=== PATIENT | female | born 1995 | race Caucasian/White ===

== ENCOUNTER → 2022-05-07 | Outpatient (CLI) | payer OTHER, SELFPAY ==
[2022-05-11 20:03] LABS: HPV Reflexed? NOT INDICATED
== END | disposition home or self-care (01) ==
LOC: LABSPEC 05-08 07:00
PROVIDERS: Referring Provider Nurse Practitioner Women's Health; Visit Provider Nurse Practitioner Women's Health
DX: Z12.4 Encounter for screening for malignant neoplasm of cervix (principal)
CPT/HCPCS: 88175; G0145

== ENCOUNTER → 2022-07-06 | Outpatient (CLI) | payer OTHER, SELFPAY ==
[2022-07-06 15:14] LABS: Amphetamine Urine VISTA NEGATIVE (<1000 ng/mL); Barbiturate Urine VISTA NEGATIVE (< 200 ng/mL); Benzodiazepine Urine VISTA NEGATIVE (< 200 ng/mL); Cocaine Urine VISTA NEGATIVE (< 300 ng/mL); Ecstacy Urine VISTA NEGATIVE (< 500 ng/mL); Methadone Urine VISTA NEGATIVE (< 300 ng/mL); PCP Urine VISTA NEGATIVE (< 25 ng/mL); THC Urine VISTA NEGATIVE (< 50 ng/mL); Vista UDS pH Range 6
== END | disposition home or self-care (01) ==
LOC: LABSPEC 14:02
PROVIDERS: Visit Provider Obstetrics & Gynecology
DX: Z34.90 Encounter for supervision of normal pregnancy, unspecified, unspecified trimester (principal)
CPT/HCPCS: 80307; 87086

== ENCOUNTER → 2022-08-25 | Outpatient (CLI) | payer OTHER, SELFPAY ==
[2022-08-25] MEDS: 0.9% NaCl Peripheral Flush Adult/Peds IV (12:13)
[2022-08-25 12:14] VITALS: BP 118/72; PULSE 84; RESP 14; TEMP 36.2; O2SAT 100; BMI 19.4
[2022-08-25] MEDS: Ondansetron 4 MG/2 ML Vial IV (12:23)
[2022-08-25] MEDS: Dextrose 5%-Lactated Ringers 1,000 ML 999 ML IV (12:23)
[2022-08-25 13:53] VITALS: BP 103/59; PULSE 72
== END | disposition home or self-care (01) ==
LOC: MEDOUTP 11:49
PROVIDERS: PCP Internal Medicine; Referring Provider Obstetrics & Gynecology; Visit Provider Obstetrics & Gynecology
DX: E86.0 Dehydration (principal)
CPT/HCPCS: 96374; 96361; A4216; J2405

== ENCOUNTER → 2022-09-02 | Outpatient (CLI) | payer OTHER, SELFPAY ==
[2022-09-02 13:17] LABS: Absolute Lymphocyte Count 1.45 X10^3/uL (0.83-4.51); Basophil# 0.04 X10^3/uL; Basophil% 0.6 % (0-1); Eosinophil# 0.07 X10^3/uL; Hematocrit 41.2 % (37-47); Hemoglobin 13.8 g/dL (12.0-15.0); Lymphocyte # 1.45 X10^3/ul (0.83-4.51); Lymphocyte % 20.7 % (19-41); Mean Corp Hgb Conc 33.5 g/dL (32-36); Mean Corpuscular Hgb 29.9 pg (27.0-32.0); Mean Corpuscular Volume 89.2 fL (81-99); Mean Platelet Vol. 9.7 fl (6.2-12.0); Monocyte# 0.36 X10^3/uL; Monocyte% 5.2 % (0-10); NRBC Flagged by Analyzer 0 % (0-5); Neutrophil # 5.02 X10^3/uL (2.7-7.7); Neutrophil % 71.8 % (47-70); Platelet Count 273 K/mm3 (150-450); RBC Distribution Width CV 12.4 % (11.6-14.6); RBC Distribution Width SD 40.4 fl (35.1-43.9); Red Blood Count 4.62 M/mm3 (4.2-5.4)
[2022-09-02 14:04] LABS: ALB/GLOB Ratio 0.9 RATIO (0.9-2.4); AST(SGOT) 19 U/L (15-37); Alanine Aminotransfer ALT/SGPT 24 U/L (13-56); Albumin, Serum 3.4 g/dL (3.2-5.0); Alkaline Phosphatase 51 U/L (45-117); Anion Gap 7 (5-15); BUN 4 mg/dL (7-18); BUN/Creat Ratio 8.2 RATIO (10-20); Calcium,Total 9.3 mg/dL (8.5-10.1); Chloride 107 mmol/L (98-107); Creatinine, Serum 0.49 mg/dL (0.55-1.02); EST Glomerular Filtration Rate 161 mL/min (>60); Est Glom Filt Rate - Afr Amer 195 mL/min (>60); Globulin 3.9 g/dL (2.2-4.2); Glucose 96 mg/dL (74-106); Potassium 3.8 mmol/L (3.5-5.1); Protein, Total 7.3 g/dL (6.4-8.2); Sodium Level 138 mmol/L (136-145)
[2022-09-02 14:47] LABS: HIV - WCH Non-Reactive (Nonreactive); Hepatitis B Surface Antigen Non-Reactive (Nonreactive); Hepatitis C Antibody Non-Reactive (Nonreactive); Rubella IgG Reactive (Nonreactive); Syphilis Antibodies Non-reactive
== END | disposition home or self-care (01) ==
LOC: LAB 12:19
PROVIDERS: PCP Internal Medicine; Visit Provider Obstetrics & Gynecology
DX: Z34.90 Encounter for supervision of normal pregnancy, unspecified, unspecified trimester (principal)
CPT/HCPCS: 36415; 80053; 85025; 86703; 86762; 86780; 86803; 86850; 86900; 86901; 87340

== ENCOUNTER → 2022-09-17 | Outpatient (CLI) | payer OTHER, SELFPAY ==
[2022-09-17 14:01] VITALS: BP 107/53; PULSE 88; RESP 16; TEMP 36.8; O2SAT 100
[2022-09-17] MEDS: 0.9% NaCl Peripheral Flush Adult/Peds IV (14:05)
[2022-09-17] MEDS: Ondansetron 4 MG/2 ML Vial IV (14:11)
[2022-09-17] MEDS: Dextrose 5%-Lactated Ringers 1,000 ML 999 ML IV (14:12)
[2022-09-17 15:28] VITALS: BP 104/59; PULSE 69
== END | disposition home or self-care (01) ==
LOC: MEDOUTP 13:42
PROVIDERS: PCP Internal Medicine; Referring Provider Obstetrics & Gynecology; Visit Provider Obstetrics & Gynecology
DX: E86.0 Dehydration (principal)
CPT/HCPCS: 96374; 96361; A4216; J2405

== ENCOUNTER → 2022-10-28 | Outpatient (CLI) | payer OTHER, SELFPAY ==
[2022-10-30 21:07] LABS: Chlamydia By Nucleic Acid AMP Negative (Negative)
[2022-10-30 21:24] LABS: Gonococcus By Nucleic Acid AMP Negative (Negative)
== END | disposition home or self-care (01) ==
LOC: LABSPEC 16:58
PROVIDERS: PCP Internal Medicine; Visit Provider Obstetrics & Gynecology
DX: Z34.90 Encounter for supervision of normal pregnancy, unspecified, unspecified trimester (principal)
CPT/HCPCS: 87491; 87591

== ENCOUNTER 2022-11-21 11:06 | Emergency (ER) | payer OTHER, SELFPAY ==
[2022-11-21 11:10] VITALS: BP 139/84; PULSE 100; RESP 18; TEMP 36.6; O2SAT 99; BMI 21.5
--- NOTE | 2022-11-21 11:53 | EDS_ITS ---
HPI History of Present Illness Chief Complaint: Nausea/Vomiting Informant: patient and spouse/S.O. Narrative Narrative: G1, P0 at 27 weeks gestation and presents for nausea vomiting since 4 AM 2 episodes of diarrhea. No bloody emesis or stools. Diagnosed with hyperemesis at 4 weeks. She would go to OB infusion center with flareups that would improve with Zofran last time was 6 weeks ago. They are not open today with holidays. She called on-call OB was sent to ED for treatment. She is typically followed by [facility] Dr. Palomo. No urinary symptoms. Occasional cramping of abdomen. Denies vaginal bleeding. Prior similar symptoms: Yes PFSH PFSH Medical History Acute kidney injury Adverse reaction to COVID-19 vaccine Asthma History of facial fracture Hyperemesis gravidarum IUD contraception Migraines Nausea & vomiting Raynauds disease Raynauds phenomenon Rh negative status during Seasonal allergies Home Medications albuterol sulfate 90 mcg/actuation aerosol inhaler (ProAir HFA) 2 puff inhalation Q6H PRN shortness of breath 07/24/22 [History Last Taken Unknown] fluticasone propionate 50 mcg/actuation blister powder for inhalation (Flovent Diskus) 1 inh inhalation BID PRN Respiratory Distress 07/24/22 [History Last Taken Unknown] prenat.vits,bennie,fxt-kbnw-aajjp 1 tab PO DAILY 08/25/22 [History Last Taken Unknown] hydroxyzine pamoate 25 mg capsule (Vistaril) 25 mg PO QHS #30 caps 10/28/22 [Rx Last Taken Unknown] ondansetron HCl 4 mg tablet 4 mg PO Q8H #90 tabs 10/28/22 [Rx Last Taken Unknown] valacyclovir 500 mg tablet (Valtrex) 500 mg PO BID #14 tabs 11/14/22 [Rx Last Taken Unknown] cephalexin 500 mg capsule 500 mg PO Q12 #10 caps 11/21/22 [Rx Last Taken Unknown] Allergy/AdvReac Type Severity Reaction Status Date / Time Iodinated Contrast Media Allergy Severe Anaphylaxis Verified 11/21/22 11:09 shellfish derived Allergy Severe Anaphylaxis Verified 11/21/22 11:09 acetaminophen [From Percocet] AdvReac Intermediate Vomiting Verified 11/21/22 11:09 hydrocodone [From Vicodin] AdvReac Intermediate Vomiting Verified 11/21/22 11:09 oxycodone [From Percocet] AdvReac Intermediate Vomiting Verified 11/21/22 11:09 anesthesia AdvReac Mild Vomiting Uncoded 11/21/22 11:09 Family History Father Prostate CA Hypertension Osteoporosis Heart disease Myocardial infarction, Onset Age: 30 Cancer prostate Grandmother Diabetes Brother Depression Bipolar 1 disorder Schizophrenia Transgender Mother [place] Anderson syndrome (geniculate herpes zoster) Surgical History History of breast biopsy Hx of shoulder surgery Social History adopted: No household members: spouse housing: house current occupational status: employed current occupation: [employer] current occupational exposures/hazards: Yes (Burning houses) pets and animals: Yes pets and animals: dog(s) history of recent travel: Yes (, Cruise [place], [place], [place], [place]) out of state: Yes out of country: Yes sexually active: Yes Smoking Status: Never smoker alcohol intake: former details: social substance use type: does not use diet: lactose free well-balanced diet: daily or most days caffeine: No during the past year weight has: remained stable what type of physical activity do you participate in: walking frequency: 1-2 times per week carey/confucianist: None seatbelt use: always do you feel safe at home: Yes additional social history: - Johnathon ROS ROS ED Constitutional Constitutional ED: Denies chills, fever(s) or sweats Eyes Eyes: Denies change in vision ENT ENT ED: Denies dysphagia or sore throat Cardiovascular Cardiovascular: Denies chest pain, leg edema, palpitations or racing heartbeat Respiratory/Chest Respiratory/Chest: Denies cough, dyspnea or dyspnea on exertion Gastrointestinal Gastrointestinal: Reports nausea and vomiting; Denies abdominal pain or diarrhea Genitourinary Genitourinary ED: Denies dysuria, hematuria or urinary frequency Musculoskeletal Musculoskeletal: Denies back pain, extremity pain or neck pain Integumentary Denies rash or wounds Neurologic Neurologic: Denies headache(s), paresthesias or weakness EXAM Physical Exam Const Vital Signs: 11/21/22 11:10 Temperature 97.8 F Temperature Source Temporal Pulse Rate 100 Respiratory Rate 18 Blood Pressure 139/84 H Blood Pressure Mean 102 Pulse Ox 99 Oxygen Delivery Method Room Air Positive well nourished and well developed General Appearance ED: well developed and NAD HEENT Reports dry mucous membranes normocephalic and atraumatic Mouth ED: Yes dry mucous membranes Mouth: dry mucous membranes Eyes PERRL, EOMs intact bilaterally and conjunctivae normal General Eye ED: Yes normal appearance of both eyes Neck no lymphadenopathy and supple General: Negative for tenderness Chest Wall Chest: Negative for tenderness Resp normal respiratory effort and normal air movement Effort and Inspection: symmetric chest movement; Negative for respiratory distress Cardio regular rate, regular rhythm and no murmurs Peripheral Pulses: pulses 2+ throughout GI normal to inspection, nondistended, normoactive bowel sounds and non-tender GI Narrative: Gravid abdomen, nontender. Palpation: Negative for guarding or rebound tenderness present Back/Spine no CVA tenderness and no thoracic nor lumbar tenderness Extremity normal to inspection General Extremety ED: Negative for edema or tenderness General Extremity: Negative for edema Neuro oriented x3 and no sensory deficits noted Sensorium / Orientation: awake and alert Skin no rashes or lesions noted and no wounds MDM MDM MDM Narrative Medical decision making narrative: Patient dry mucosal membranes. 2 L fluid ordered IV Zofran. Urine negative for ketones slight leukocytes and WBCs and bacteria urine culture sent. Electrolytes are normal. Reevaluate improved she is tolerated oral intake. Tylenol added for back discomfort with improvement. She is started on Keflex due to her with UTI findings. Culture pending. She will follow-up with her doctors as an outpatient with return precautions. Initial heart tones 170 rechecked after fluids was 158. Lab Data Attestation: I reviewed the patient's lab results. Labs: Laboratory Results - last 24 hr 11/21/22 11/21/22 12:05 12:17 Sodium 136 Potassium 3.6 Chloride 106 Carbon Dioxide 23.0 Anion Gap 7 BUN 5 L Creatinine 0.48 L Estim Creat Clear Calc 139.24 Est GFR (MDRD) Af Amer 200 Est GFR (MDRD) Non-Af 165 BUN/Creatinine Ratio 10.5 Glucose 81 Calcium 8.4 L Urine Color Yellow Urine Clarity Clear Urine pH 8.0 Ur Specific [place] 1.010 Urine Protein 15 H Urine Glucose (UA) Normal Urine Ketones Negative Urine Occult Blood Negative Urine Nitrite Negative Urine Bilirubin Negative Urine Urobilinogen Normal Ur Leukocyte Esterase 25 H Urine RBC 0 SEEN Urine WBC 5-10 SEEN Ur Squamous Epith Cells 0-5 SEEN Urine Bacteria 2+ Urine Mucus 0 SEEN Discharge Plan Triage Chief Complaint: Nausea/Vomiting ED Provider: Michael Mireles Dx/Rx/DC Orders Clinical Impression: Hyperemesis gravidarum, Third trimester , UTI in Instructions: Urinary Tract Infections in Women, 3rd Trimester Changes, ED Hyperemesis Gravidarum Prescriptions: New cephalexin [cephalexin] 500 mg capsule 500 mg PO Q12 Qty: 10 0RF No Action Flovent Diskus 50 mcg/actuation blister with device 1 inh inhalation BID PRN (Reason: Respiratory Distress) albuterol sulfate [ProAir HFA] 90 mcg/actuation HFA aerosol inhaler 2 puff inhalation Q6H PRN (Reason: shortness of breath) hydroxyzine pamoate [Vistaril] 25 mg capsule 25 mg PO QHS Qty: 30 5RF ondansetron HCl 4 mg tablet 4 mg PO Q8H Qty: 90 2RF Vitamin Tablet 1 tab PO DAILY valacyclovir [Valtrex] 500 mg tablet 500 mg PO BID Qty: 14 0RF Primary Care Provider: Cristi Fontaine Referrals: Cristi Fontaine MD [Primary Care Provider] - Amelia Méndez DO [Med Staff - Active Staff] - 1 Week Disposition Disposition: Home, Self Care
[2022-11-21 12:09] LABS: Mucous, Urine 0 SEEN /hpf (<or=2+); Red Blood Cells-Urine 0 SEEN /hpf (0-5)
[2022-11-21 12:15] LABS: Color, Urine Yellow (Yellow); Glucose, Dipstick Normal (Normal); Ketone-Dipstick Negative (Negative); Leukocyte Esterase-Dipstick 25 /ul (Negative); Nitrite-Dipstick Negative (Negative); Occult Blood-Urine Negative /ul (Negative); Protein-Dipstick 15 mg/dl (Negative); Urine Bilirubin Dipstick Negative (Negative); Urine Clarity Clear (Clear); Urine Urobilinogen Normal (Normal)
[2022-11-21] MEDS: Ondansetron 4 MG/2 ML Vial IV (12:16)
[2022-11-21] MEDS: 0.9% Normal Saline 1,000 ML 1000 ML IV (12:16)
[2022-11-21 12:33] LABS: Anion Gap 7 (5-15); BUN 5 mg/dL (7-18); BUN/Creat Ratio 10.5 RATIO (10-20); Calcium,Total 8.4 mg/dL (8.5-10.1); Chloride 106 mmol/L (98-107); Creatinine, Serum 0.48 mg/dL (0.55-1.02); EST Glomerular Filtration Rate 165 mL/min (>60); Est Glom Filt Rate - Afr Amer 200 mL/min (>60); Estimated Creatinine Clearance 139.24 ml/min; Glucose 81 mg/dL (74-106); Potassium 3.6 mmol/L (3.5-5.1); Sodium Level 136 mmol/L (136-145)
[2022-11-21 12:35] LABS: Bacteria 2+ /hpf (None Seen); Squamous Epithelial Cells - UA 0-5 SEEN /hpf (5-10); White Blood Cells 5-10 SEEN /hpf (0-5)
[2022-11-21] MEDS: Acetaminophen 500 MG Tablet 1000 MG PO (14:28)
[2022-11-21] MEDS: Cephalexin 250 MG Capsule 500 MG PO (15:49)
[2022-11-21 15:50] VITALS: PULSE 87; RESP 18; O2SAT 100
== END 2022-11-21 15:57 | disposition home or self-care (01) ==
PROVIDERS: Emergency Provider Emergency Medicine; PCP Internal Medicine; Visit Provider Emergency Medicine
DX: O21.0 Mild hyperemesis gravidarum (principal); Z3A.27 27 weeks gestation of pregnancy; O23.43 Unspecified infection of urinary tract in pregnancy, third trimester; R19.7 Diarrhea, unspecified; O99.891 Other specified diseases and conditions complicating pregnancy
CPT/HCPCS: 80048; 81001; 87086; 96361; 96374; 99284; J7030; A4216; J2405

== ENCOUNTER → 2022-12-02 | Outpatient (CLI) | payer OTHER, SELFPAY ==
[2022-12-02 12:22] LABS: Absolute Lymphocyte Count 1.84 X10^3/uL (0.83-4.51); Absolute Neutrophil Count 6.4 X10^3/uL (2.0-7.7); Basophil# 0.05 X10^3/uL; Basophil% 0.6 % (0-1); Eosinophil# 0.15 X10^3/uL; Eosinophils% 1.7 % (0-5); Hematocrit 36.5 % (37-47); Hemoglobin 11.8 g/dL (12.0-15.0); Lymphocyte # 1.84 X10^3/ul (0.83-4.51); Lymphocyte % 20.3 % (19-41); Mean Corp Hgb Conc 32.3 g/dL (32-36); Mean Corpuscular Volume 89.7 fL (81-99); Mean Platelet Vol. 9.3 fl (6.2-12.0); Monocyte# 0.52 X10^3/uL; Monocyte% 5.7 % (0-10); NRBC Flagged by Analyzer 0.2 % (0-5); Neutrophil # 6.39 X10^3/uL (2.7-7.7); Neutrophil % 70.5 % (47-70); Platelet Count 381 K/mm3 (150-450); RBC Distribution Width CV 12.4 % (11.6-14.6); RBC Distribution Width SD 40.4 fl (35.1-43.9); Red Blood Count 4.07 M/mm3 (4.2-5.4); White Blood Count 9.1 K/mm3 (4.4-11.0)
[2022-12-02 12:32] LABS: Glucose Challenge Gest 1H 50g 147 mg/dL (70-140)
[2022-12-02 13:06] LABS: HIV - WCH Non-Reactive (Nonreactive); Syphilis Antibodies Non-reactive
== END | disposition home or self-care (01) ==
LOC: LAB 11:17
PROVIDERS: PCP Internal Medicine; Visit Provider Obstetrics & Gynecology
DX: Z34.90 Encounter for supervision of normal pregnancy, unspecified, unspecified trimester (principal); Z13.1 Encounter for screening for diabetes mellitus
CPT/HCPCS: 36415; 82950; 85025; 86703; 86780

== ENCOUNTER → 2022-12-22 | Outpatient (CLI) | payer OTHER, SELFPAY | END | disposition home or self-care (01) | PROVIDERS: PCP Internal Medicine; Referring Provider Obstetrics & Gynecology; Visit Provider Obstetrics & Gynecology | DX: O26.899 Other specified pregnancy related conditions, unspecified trimester (principal); Z67.91 Unspecified blood type, Rh negative | CPT/HCPCS: 36415; 86900; 86901 ==

== ENCOUNTER → 2023-01-04 | Outpatient (CLI) | payer OTHER, SELFPAY ==
--- NOTE | 2023-01-04 15:09 | US_ITS ---
STUDY: SECOND AND THIRD TRIMESTER OBSTETRICAL ULTRASOUND - LIMITED REASON FOR EXAM: Female, 27 years old growth -- 32 weeks LMP: 05/23/2022. PRIOR ULTRASOUND: None. TECHNIQUE: Transabdominal and Transvaginal TECHNICAL QUALITY: Adequate. FINDINGS: There is a single intrauterine fetus. The fetus is in a cephalic presentation. There is demonstrated cardiac activity with a heart rate of 135 bpm. There is a normal amniotic fluid volume. The largest amniotic fluid pocket measures 4.6 cm. The amniotic fluid index (REGLA) is 13.7 cm. The placenta is posterior in location and is not low lying. There are Grade 0 placental changes. The cervix measures 2.3 cm in length. BIOMETRY: BPD: 8.5 cm: 34 weeks, 2 days HC: 31 cm: 34 weeks, 4 days AC: 28.28 cm: 32 weeks, 2 days FL: 6.23 cm: 32 weeks, 2 days Age by LMP: 32 weeks, 2 days. SAMSON by LMP: 02/27/2023. age by current US: 33 weeks, 1 days. SAMSON by current US: 02/21/2023. Estimated weight: 2032 grams, +/- 305 grams, 53 percentile. US/OB Limited With Biometrics IMPRESSION: Single live uterine gestation with a mean gestational age of 33 weeks and 1 day. Electronically Signed: Casey Chacon MD at 15:23 EST ,
== END | disposition home or self-care (01) ==
LOC: US 15:08
PROVIDERS: PCP Internal Medicine; Visit Provider Obstetrics & Gynecology
DX: O98.512 Other viral diseases complicating pregnancy, second trimester (principal); U07.1 COVID-19
CPT/HCPCS: 76816

== ENCOUNTER → 2023-02-01 | Outpatient (CLI) | payer OTHER, SELFPAY ==
--- NOTE | 2023-02-01 14:44 | US_ITS ---
STUDY: SECOND AND THIRD TRIMESTER OBSTETRICAL ULTRASOUND - LIMITED REASON FOR EXAM: Female, 27 years old growth -- 36 weeks LMP: May 23, 2022. PRIOR ULTRASOUND: Comparison is made with prior study of January 04, 2023. TECHNIQUE: Transabdominal TECHNICAL QUALITY: Adequate. FINDINGS: There is a single intrauterine fetus. The fetus is in a cephalic presentation. There is demonstrated cardiac activity with a heart rate of 140 bpm. There is a normal amniotic fluid volume. The largest amniotic fluid pocket measures 5.4 cm. The amniotic fluid index (REGLA) is 11.6 cm. The placenta is posterior in location and is not low lying. There are Grade 2 placental changes. The cervical length was unable to be measured due to head position. BIOMETRY: BPD: 9.2 cm: 37 weeks, 1 days HC: 32.8 cm: 37 weeks, 2 days AC: 31 cm: 35 weeks, 0 days FL: 7.1 cm: 36 weeks, 2 days Age by LMP: 36 weeks, 2 days. SAMSON by LMP: February 27, 2023. age by prior US: 37 weeks, 0 days. SAMSON by prior US: February 21, 2023. age by current US: 36 weeks, 3 days. SAMSON by current US: February 26, 2023. Estimated weight: 2780 grams, +/- 417 grams, 40 percentile. US/OB Limited With Biometrics IMPRESSION: Single live intrauterine gestation with a mean gestational age of 37 weeks. The measurements obtained today following within the normal expected range. Electronically Signed: Casey Chacon MD at 12:25 EST ,
== END | disposition home or self-care (01) ==
LOC: US 14:42
PROVIDERS: PCP Internal Medicine; Visit Provider Nurse Practitioner Women's Health
DX: O98.512 Other viral diseases complicating pregnancy, second trimester (principal); U07.1 COVID-19
CPT/HCPCS: 76816

== ENCOUNTER → 2023-02-03 | Outpatient (CLI) | payer OTHER, SELFPAY | END | disposition home or self-care (01) | LOC: LABSPEC 15:46 | PROVIDERS: PCP Internal Medicine; Referring Provider Obstetrics & Gynecology; Visit Provider Obstetrics & Gynecology | DX: Z34.90 Encounter for supervision of normal pregnancy, unspecified, unspecified trimester (principal) | CPT/HCPCS: 87081 ==

== ENCOUNTER 2023-02-18 07:50 | Inpatient (IN) | payer OTHER, SELFPAY ==
[2023-02-18] VITALS (48 sets, daily range): BP systolic 106–149; BP diastolic 51–100; PULSE 68–115; RESP 16; TEMP 36.1–37.1; O2SAT 90–100; BMI 24.0
[2023-02-18 02:43] LABS: ROM Internal Control Test YES-OK TO RESULT pt. (Internal QC); ROM Patient Test Negative (Negative)
--- NOTE | 2023-02-18 08:12 | HP.PCM.OB_ITS ---
HPI - General General Date of Admission: 02/18/23 HPI Narrative SULMA HILL, is a 27 y/o @ 38 weeks 5 days who presents to L&D with contractions that started at 1 am. By 4 am the contractions slowed some. However BP is now 140's/80's-90's. At 7 am cx changed to 3/90/0 and the decision was made to admit for augmentation and run PIH labs. Maternal Data Information SAMSON Calculator Estimated Delivery Date Method Current WG Current Estimate 02/27/23 LMP (Certain) 38w 5d PFSH [facility] Medical History (Updated 02/18/23 @ 04:30 by Cecile Daly) Acute kidney injury Adverse reaction to COVID-19 vaccine Asthma Genital herpes affecting History of facial fracture Hyperemesis gravidarum IUD contraception Migraines Nausea & vomiting Raynauds disease Raynauds phenomenon Rh negative status during Seasonal allergies Home Medications albuterol sulfate 90 mcg/actuation aerosol inhaler (ProAir HFA) 2 puff inhalation Q6H PRN shortness of breath 07/24/22 [History Last Taken Unknown] fluticasone propionate 50 mcg/actuation blister powder for inhalation (Flovent Diskus) 1 inh inhalation BID PRN Respiratory Distress 07/24/22 [History Last Taken Unknown] blood sugar diagnostic (Accu-Chek Guide test strips) #100 ea 12/02/22 [Rx Last Taken Unknown] blood-glucose meter #1 ea 12/02/22 [Rx Last Taken Unknown] lancets #100 ea 12/02/22 [Rx Last Taken Unknown] omeprazole 20 mg capsule,delayed release 20 mg PO DAILY 30 days #30 caps 11/29 07/21 [Rx Last Taken Unknown] famotidine 20 mg tablet (Pepcid) 20 mg PO DAILY heartburn 02/18/23 [History Last Taken 02/17/23] hydroxyzine pamoate 25 mg capsule (Vistaril) 25 mg PO QHS sleep 02/18/23 [ History Last Taken 02/17/23] omeprazole 20 mg-sodium bicarbonate 1.1 gram capsule (Zegerid OTC) 1 cap PO DAILY acid reflux 02/18/23 [History Last Taken 02/17/23] ondansetron HCl 4 mg tablet 4 mg PO Q8H PRN Nausea And Vomiting 02/18/23 [History Last Taken Unknown] Allergy/AdvReac Type Severity Reaction Status Date / Time Iodinated Contrast Media Allergy Severe Anaphylaxis Verified 02/17/23 14:36 shellfish derived Allergy Severe Anaphylaxis Verified 02/17/23 14:36 hydrocodone [From Vicodin] AdvReac Intermediate Vomiting Verified 02/17/23 14:36 oxycodone [From Percocet] AdvReac Intermediate Vomiting Verified 02/17/23 14:36 anesthesia AdvReac Mild Vomiting Uncoded 02/11/23 09:19 Family History Father Prostate CA Hypertension Osteoporosis Heart disease Myocardial infarction, Onset Age: 30 Cancer prostate Grandmother Diabetes Brother Depression Bipolar 1 disorder Schizophrenia Transgender Mother Kayce Anderson syndrome (geniculate herpes zoster) Surgical History (Updated 02/18/23 @ 04:30 by Cecile Daly) History of breast biopsy History of surgery Hx of shoulder surgery Social History adopted: No household members: spouse housing: house current occupational status: employed current occupation: [employer] current occupational exposures/hazards: Yes (Burning houses) pets and animals: Yes pets and animals: dog(s) history of recent travel: Yes (, [facility] [place], [place], [place], [place]) out of state: Yes out of country: Yes sexually active: Yes Smoking Status: Never smoker alcohol intake: former details: social substance use type: does not use diet: lactose free well-balanced diet: daily or most days caffeine: No during the past year weight has: remained stable what type of physical activity do you participate in: walking frequency: 1-2 times per week carey/sabianist: None seatbelt use: always do you feel safe at home: Yes additional social history: - Johnathon History 1 Elective abortions Hx Para 0 Spontaneous abortions Hx # Term Pregnancies Ectopic pregnancies Hx # Pregnancies Multiple births # of living children 0 Visit Details Expected Delivery Route/Plan Labor Preferences- CB/BF classes: [] labor support person: [] labor intervention preferences: [] pain management options preferred: [] cut cord/dad catch: [] : [] PP control planned: [] discussed possible routes of delivery and associated risks: [] special requests: [] Plans Covid status: vaccinated x1(had a reaction) Flu vaccine: declines Tdap vaccine: [] Rhogam: [] LARC form signed: [] Problem list reviewed and updated with the most current plan of care details and appropriate orders placed. Relevant counseling for the gestational age provided. Continue routine care and follow up unless otherwise noted in visit notes/problem list details OB Flowsheet Initial Weight: Not Recorded Date -?-?-?-?-?-?-?-?-?-?-?-?- EGA Weight BP Urine Prot -?-?-?-?-?-?-?-?-?-?-?-?- Glucose FHR FuHt Pres Dilation -?-?-?-?-?-?-?-?-?-?-?-?- Effaced St Visit Note 07/06/22 -?-?-?-?-?-?-?-?-?-?-?-?- 6w 2d 102 lb 8 oz 110/60 -?-?-?-?-?-?-?-?-?-?-?-?- 120 -?-?-?-?-?-?-?-?-?-?-?-?- SM- CRL cons wit h LMP SM- CRL 6mm cons with LMP 08/05/22 -?-?-?-?-?-?-?-?-?-?-?-?- 10w 4d 105 lb 4 oz 134/83 Nega tive -?-?-?-?-?-?-?-?-?-?-?-?- Negative 185 -?-?-?-?-?-?-?-?-?-?-?-?- JV- pt s till vo miting. wants refill in zofran. discussed zofran pump but declines. wants NIPT done 09/02/22 -?-?-?-?-?-?-?-?-?-?-?-?- 14w 4d 106 lb 2 oz 119/79 Nega tive -?-?-?-?-?-?-?-?-?-?-?-?- Negative 140 -?-?-?-?-?-?-?-?-?-?-?-?- LC-continues wit h n/v LC-continues with n/v. [facility] nausea management. currently taking zofran tid. pump is too costly at this time. to obtain NOB labs today 09/28/22 -?-?-?-?-?-?-?-?-?-?-?-?- 18w 2d 110 lb 6 oz 112/68 Nega tive -?-?-?-?-?-?-?-?-?-?-?-?- Negative 157 -?-?-?-?-?-?-?-?-?-?-?-?- MH-No VB. Ross Muro M. Nausea persists but improving. Declines pump/med change as insurance will not cover. Zofran helping more. Denies other concerns. 10/28/22 -?-?-?-?-?-?-?-?-?-?-?-?- 22w 4d 116 lb 4 oz 118/76 Nega tive -?-?-?-?-?-?-?-?-?-?-?-?- Negative 159 -?-?-?-?-?-?-?-?-?-?-?-?- JV- no lof, vagi nal bleeding, or dec fm. vistaril for sleep. fob is willing to get blood tested to avoid rhogam. 12/02/22 -?-?-?-?-?-?-?-?--?-?-?-?- 27w 4d 119 lb 119/79 Negative -?-?-?-?-?-?-?-?-?-?-?-?- Negative 155 -?-?-?-?-?-?-?-?-?-?-?-?- JV- no lof, vagi nal bleeding, or dec fm. She was in ER on [address] for HG. will try reglan and pepcid. failed 1 hr but can not do 3 hr. will start monitoring glucose levels at home and report data. 12/16/22 -?-?-?-?-?-?-?-?-?-?-?-?- 29w 4d 120 lb 8 oz 118/81 Nega tive -?-?-?-?-?-?-?-?-?-?-?-?- Negative 130 28 -?-?-?-?-?-?-?-?-?-?-?-?- JV- glucose log looks normal. all levels are within normal limits. ok to discontinue now and restart fasting levels at 36 weeks. return tomorrow for a type and screen and rhogam. 12/30/22 -?-?-?-?-?-?-?--?-?-?-?-?- 31w 4d 120 lb 8 oz 121/86 Nega tive -?-?-?-?-?-?-?-?-?-?-?-?- Negative 145 28 -?-?-?-?-?-?-?-?-?-?-?-?- JV- measuring sl ightly small but has growth scan scheduled. no complaints today. She was unable to get in to see Dr. Perez but plans to try other places for pelvic pain. 01/13/23 -?-?-?-?-?-?-?-?-?-?-?-?- 33w 4d 123 lb 3 oz 126/78 Nega tive -?-?-?-?-?-?-?-?-?-?-?-?- Negative 147 32 -?-?-?-?-?-?-?-?-?-?-?-?- JV- no lof, vagi nal bleeding, or dec fm. growth is 52% (4.47lbs) seeing Dr. Perez now. start glucose testing again at 36 weeks 01/27/23 -?-?-?-?-?-?-?-?-?-?-?-?- 35w 4d 127 lb 6 oz 122/80 Nega tive -?-?-?-?-?-?-?-?-?-?-?-?- Negative 140 34 Cephalic 0 .5 -?-?-?-?-?-?-?-?-?-?-?-?- -2 JV- vinicius ent complains of pelvic pressure. ptl precautions discussed. wants tdap. fmla paperwork to be filled out. JV- patient complains of vom iting in the middle of the night due to reflux. recommend zegrid + pepcid. if no improvement will consult Dr. Lerma. pelvic pressure. ptl precautions discussed. wants tdap. fmla paperwork to be filled out. 02/03/23 -?-?-?-?-?-?-?-?-?-?-?-?- 36w 4d 129 lb 4 oz 119/80 Nega tive -?-?-?-?-?-?-?-?-?-?-?-?- Negative 154 35 Cephalic 1 -?-?-?-?-?-?-?-?-?-?-?-?- 70 0 JV- station very low today an cx is behind the head. gbs collected. reflux improved. normal growth scan 6 lbs 1 oz sunshine 11 02/10/23 -?-?-?-?-?-?-?-?-?-?-?-?- 37w 4d 128 lb 4 oz 119/76 Nega tive -?-?-?-?-?-?-?-?-?-?-?-?- Negative 147 35 Cephalic 2 -?-?-?-?-?-?-?-?-?-?-?-?- 85 0 JV- pt is vomiting still in her sleep and now has a slight tickle in her throat and a cough. lungs are clear. recommend bicitra at night and IOL at 39 weeks to avoid aspiration. IOL set up for February 23 at 7am. 02/17/23 -?-?-?-?-?-?-?-?-?-?-?-?- 38w 4d 130 lb 4 oz 136/84 Nega tive -?-?-?-?-?-?-?-?-?-?-?-?- Negative 150 35 Cephalic 2 -?-?-?-?-?-?-?-?-?-?-?-?- 90 0 JV- no lof , vaginal bleeding, or dec fm. ROS Constitutional Constitutional: Denies change in weight, fatigue, fever(s), headache(s), poor appetite or weakness Eyes Eyes: Denies blurry vision, change in vision, seeing flashes or spots in vision ENT HEENT: Denies dizziness, headache(s), loss taste/smell or sore throat Cardiovascular Cardiovascular: Denies chest pain, dizziness, dyspnea, irregular heart rhythm, leg edema, palpitations, rapid heart rate or vomiting Respiratory/Chest Respiratory/Chest: Denies chest tightness, cough, dyspnea or breast pain Gastrointestinal Gastrointestinal: Denies abdominal pain, anorexia, constipation, cramping, diarrhea, hemorrhoids, vomiting or weight changes Genitourinary Genitourinary: Denies dysuria, flank pain, genital lesions, genital pain, urinary frequency or urinary urgency Musculoskeletal Musculoskeletal: Denies back pain, difficulty walking, joint pain, limited range of motion, muscle cramps or numbness Integumentary Integumentary: Denies lesions or unusual bruising Neurologic Neurologic: Denies abnormal movements, abnormal speech, dizziness, numbness, seizure-like activity or syncope Psychiatric Psychiatric: Denies anxiety, behavioral changes, change in appetite, change in libido, cognitive impairment, confusion, depression, difficulty concentrating, hallucinations or suicidal thoughts Endocrine Endocrinology: Denies excessive sweating, polydipsia or polyuria Hematologic/Lymphatic Hematologic/Lymphatic: Denies easy bleeding, easy bruising or lymphadenopathy Allergic/Immunologic Allergic/Immunologic: Denies itchy eyes, lip swelling, seasonal rhinorrhea, rhinitis, throat swelling, tongue swelling, eczemia, wheezing or asthma Vital Signs Vital Signs Vital Signs: 02/18/23 02:01 02/18/23 02:01 02/18/23 02:00 Temperature Temperature Source Pulse Rate 78 Blood Pressure 121/82 H BP Systolic 121 BP Diastolic 82 Pulse Ox 98 02/18/23 02:02 02/18/23 02:02 02/18/23 02:02 Temperature 98.6 F Temperature Source Temporal Pulse Rate Blood Pressure BP Systolic BP Diastolic Pulse Ox 98 02/18/23 07:18 02/18/23 07:18 02/18/23 07:20 Temperature Temperature Source Temporal Pulse Rate 74 Blood Pressure 143/82 H BP Systolic 143 BP Diastolic 82 Pulse Ox 02/18/23 07:20 Temperature 98.7 F Temperature Source Pulse Rate Blood Pressure BP Systolic BP Diastolic Pulse Ox Weight Weight: 131 lb 2.801 oz Body Mass Index (BMI) 24.0 Physical Exam Const alert, oriented x3, no apparent distress and healthy appearing General Appearance: cooperative; Negative for anxious HEENT normocephalic Face and Sinus: normal facial exam Eyes EOMs intact bilaterally and no scleral icterus General Eye: normal appearance of both eyes Neck full ROM and supple Lymph Lymphatic: no lymphadenopathy noted Chest Chest: abnormal inspection of the chest Resp normal respiratory effort Effort and Inspection: able to speak in complete sentences Cardio regular rate GI soft to palpation and non-tender Inspection: gravid Palpation: soft; Negative for tender external exam normal Amniotic Fluid: ROM+plus negative - Back/Spine no CVA tenderness Extremity normal to inspection, full ROM and no clubbing, cyanosis or edema General Extremity: Negative for calf tenderness or edema Skin Lesions: no lesions Rashes: no rashes Psych mental status grossly normal Labs Labs Labs: Blood Type A NEGATIVE Antibody Screen NEGATIVE Hct 36.5 % (37-47) L Hgb 11.8 g/dL (12.0-15.0) L Pap Smear Negative Obstetrics US Syphilis Total Ab Non-reactive Rubella IgG Antibody Reactive (Nonreactive) Hep Bs Antigen Non-Reactive (Nonreactive) Chlamydia DNA (LEILANI) Negative (Negative) Neisseria gonorrhoeae DNA (LEILANI) Negative (Negative) HIV 1&2 Antibody Non-Reactive (Nonreactive) Glucose 1 Hr 50 gm 147 mg/dL (70-140) H Assessment & Plan (1) History of recurrent UTI (urinary tract infection): COMMENT: 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 Hx benign bx. Records request and then de cide imaging. (3) : QUALIFIERS: Weeks of gestation: 38 weeks Qualified Code(s): Z3A.38 - 38 weeks gestation of COMMENT: GBS negative, anatomy nl, discussed NIPT & Carrier testing, failed 1 HR GCT, (4) Supervision of normal : COMMENT: PRR , surprise,SAMSON 02/27/23, Spouse Johnathon (5) COVID-19 affecting in first trimester: COMMENT: asa 81 mg daily, Growth US @ 32 & 36 weeks gestation, Pt took antiviral medication 06/08- (6) Exercise-induced asthma: (7) COVID-19 affecting in second trimester: COMMENT: asa 81 mg daily, Growth US at 32 & 36wks (8) Abnormal glucose affecting : COMMENT: pt can not do 3 hr gtt due to HG. wants to record glucose levels and report after 1-2 weeks. - normal levels x 2 weeks. will start checking fasting levels at 36 weeks (9) Segmental and somatic dysfunction of sacral region: (10) Back pain: QUALIFIERS: Back pain location: low back pain Chronicity: acute Back pain laterality: bilateral Sciatica presence: without sciatica Qualified Code(s): M54.50 - Low back pain, unspecified (11) Segmental and somatic dysfunction of thoracic region: (12) Rh negative status during : COMMENT: rhogam if a VB and at 28 wk (13) Hyperemesis gravidarum: COMMENT: unable to tolerate 3 hr gtt. (14) Raynauds phenomenon: (15) History of facial fracture: (16) Migraines: (17) Asthma: PLAN: Plan plan for augmentation of labor and pih labs
[2023-02-18] MEDS: LACTATED RINGERS 500 ML 999 ML IV (08:15)
[2023-02-18 08:28] LABS: Absolute Lymphocyte Count 2.91 X10^3/uL (0.83-4.51); Absolute Neutrophil Count 7.8 X10^3/uL (2.0-7.7); Basophil# 0.07 X10^3/uL; Basophil% 0.6 % (0-1); Eosinophil# 0.08 X10^3/uL; Eosinophils% 0.7 % (0-5); Hematocrit 38.8 % (37-47); Hemoglobin 12.8 g/dL (12.0-15.0); Lymphocyte # 2.91 X10^3/ul (0.83-4.51); Lymphocyte % 24.8 % (19-41); Mean Corpuscular Hgb 27.1 pg (27.0-32.0); Mean Corpuscular Volume 82.2 fL (81-99); Mean Platelet Vol. 9.8 fl (6.2-12.0); Monocyte# 0.72 X10^3/uL; Monocyte% 6.1 % (0-10); NRBC Flagged by Analyzer 0 % (0-5); Neutrophil # 7.83 X10^3/uL (2.7-7.7); Neutrophil % 66.6 % (47-70); Platelet Count 362 K/mm3 (150-450); RBC Distribution Width CV 13.1 % (11.6-14.6); RBC Distribution Width SD 38.5 fl (35.1-43.9); Red Blood Count 4.72 M/mm3 (4.2-5.4); White Blood Count 11.8 K/mm3 (4.4-11.0)
[2023-02-18] MEDS: Lactated Ringers 1,000 ML 50 ML IV (08:45)
[2023-02-18 08:54] LABS: AST(SGOT) 19 U/L (15-37); Alanine Aminotransfer ALT/SGPT 14 U/L (13-56); Creatinine, Serum 0.48 mg/dL (0.55-1.02); EST Glomerular Filtration Rate 162 mL/min (>60); Est Glom Filt Rate - Afr Amer 196 mL/min (>60); Estimated Creatinine Clearance 139.24 ml/min; Uric Acid 4.1 mg/dL (2.6-6.0)
[2023-02-18 09:09] LABS: Syphilis Antibodies Non-reactive
[2023-02-18 09:37] LABS: Protein, Urine (Random) 31.2 mg/dL (<11.9); Protein:Creat Ratio 276 mg/g CRE (0-200)
[2023-02-18] MEDS: fentaNYL-bupivacaine (epidural) 100 ML BAG EPIDURAL ×2 (09:51→14:23)
[2023-02-18] MEDS: Famotidine 20 MG Tablet 40 MG PO (10:39)
[2023-02-18] MEDS: Oxytocin 15 Units/NS 250ml 15 UNITS/250 ML IV.SOLN 2 UNITS IV (10:42)
[2023-02-18] MEDS: Ondansetron 4 MG/2 ML Vial IV (14:00)
[2023-02-18] MEDS: Oxytocin 15 Units/NS 250ml 15 UNITS/250 ML IV.SOLN 83 UNITS IV (17:40)
--- NOTE | 2023-02-18 17:56 | OP.PCM_ITS ---
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 Hx benign bx. Records request and then decide imaging. (3) : QUALIFIERS: Weeks of gestation: 38 weeks Qualified Code(s): Z3A.38 - 38 weeks gestation of COMMENT: GBS negative, anatomy nl, discussed NIPT & Carrier testing, failed 1 HR GCT, (4) Supervision of normal : COMMENT: PRR , surprise,SAMSON 02/27/23, Spouse Johnathon (5) COVID-19 affecting in first trimester: COMMENT: asa 81 mg daily, Growth US @ 32 & 36 weeks gestation, Pt took antiviral medication 06/08- (6) Exercise-induced asthma: (7) COVID-19 affecting in second trimester: COMMENT: asa 81 mg daily, Growth US at 32 & 36wks (8) Abnormal glucose affecting : COMMENT: pt can not do 3 hr gtt due to HG. wants to record glucose levels and report after 1-2 weeks. - normal levels x 2 weeks. will start checking fasting levels at 36 weeks (9) Segmental and somatic dysfunction of sacral region: (10) Segmental and somatic dysfunction of lumbar region: (11) Back pain: QUALIFIERS: Back pain location: low back pain Chronicity: acute Back pain laterality: bilateral Sciatica presence: without sciatica Qualified Code(s): M54.50 - Low back pain, unspecified (12) Segmental and somatic dysfunction of thoracic region: (13) Rh negative status during : COMMENT: rhogam if a VB and at 28 wk (14) Hyperemesis gravidarum: COMMENT: unable to tolerate 3 hr gtt. Maternal Data Information SAMSON Calculator Estimated Delivery Date Method Current WG Current Estimate 02/27/23 LMP (Certain) 38w 5d Final SAMSON: 02/27/23 Final SAMSON Source: LMP Gestational age: 38 weeks 5 days Vaginal Delivery Operative Information Date of Procedure: 02/18/23 Pre-Operative Diagnosis: 27 y/o @ 38 weeks 5 days, early labor, elevated blood pressures Post-Operative Diagnosis: 27 y/o @ 38 weeks 5 days, early labor, elevated blood pressures Surgery / Procedure Performed: Spontaneous Vaginal Delivery Type of Anesthesia: Epidural Drain: Forrester to straight drain Estimated Blood Loss: 100cc Findings Description of Procedure: Patient began pushing and delivered the head in the JOSTIN presentation. The head was delivered atraumatically and a loose nuchal cord ?1 was identified and easily reduced over the infant's head. The anterior and posterior shoulders delivered without complication followed by the rest of the and the infant was placed on the maternal abdomen. Delayed cord clamping was employed for approximately 60 seconds. Cord was clamped and cut and gentle traction was applied to the cord and the placenta delivered spontaneously immediately following it was noted to be intact with three-vessel cord. The perineum and vagina were inspected and noted to have a 1st degree laceration repaired with a 3-0 vicryl rapide. EBL was 100 cc. Patient and infant tolerated delivery well. Amniotic Membrane Rupture Type: Artificial Time of Membrane Rupture: 10 am Amniotic Fluid Description: Clear Placental Delivery Description: Spontaneous Placenta Disposition: [facility] Cord Vessel Description: 3 Vessels Cord Entanglement: Around neck x 1, loose Infant A Gender: Male (1 minute): 8 (5 minute): 9 Delayed Cord Clamping: Yes Post Vaginal Delivery Medications Given After Delivery: IV Pitocin Episiotomy Description: None Laceration: 1st degree Complication Complications: None Multi Select Codes Urinary/Genital Urinary/Genital CPT Codes: 84240 Vaginal Delivery [facility]
--- NOTE | 2023-02-18 18:00 | DCINST_ITS ---
Discharge Instructions Diet Discharge Diet: No restrictions Activity Discharge Activity: Return to Normal Activity, May Not Drive (while taking narcotic pain medications.) and May Shower May resume sexual activity in: 4-6 weeks Dressing / Incision Call your doctor if your incision/area has: Continuous Slow Oozing, Sudden Increased Bleeding, Increased Pain/ Swelling, Increased Redness and Foul Smelling Discharge Follow Up Care Please Follow Up With: Amelia Méndez, When: Call [phone] to make an appointment with your doctor in 6 weeks. If you had elevated blood pressure or 4th degree laceration, you will need to be seen in 2 weeks. Test Results: Test results from this visit will be discussed in further detail at your follow- up appointment, if applicable. Discharge Plan Admission Admit Date/Time: 02/18/23 07:50 Attending Provider: Amelia Méndez Primary Care Provider: Cristi Fontaine Discharge Orders/Prescriptions Prescriptions: No Action Flovent Diskus 50 mcg/actuation blister with device 1 inh inhalation BID PRN (Reason: Respiratory Distress) albuterol sulfate [ProAir HFA] 90 mcg/actuation HFA aerosol inhaler 2 puff inhalation Q6H PRN (Reason: shortness of breath) omeprazole 20 mg capsule,delayed release(DR/EC) 20 mg PO DAILY 30 Days Qty: 30 6RF ondansetron HCl 4 mg tablet 4 mg PO Q8H PRN (Reason: Nausea And Vomiting) famotidine [Pepcid] 20 mg tablet 20 mg PO DAILY omeprazole-sodium bicarbonate [Zegerid OTC] 20-1.1 mg-gram Capsule 1 cap PO DAILY hydroxyzine pamoate [Vistaril] 25 mg Capsule 25 mg PO QHS (DME) blood-glucose meter Misc See Rx Instructions .MEDSUPPLY Qty: 1 0RF Rx Instructions: As directed- Test fasting and 2 hours after meals (DME) lancets Misc See Rx Instructions .MEDSUPPLY Qty: 100 4RF Rx Instructions: As directed (DME) Accu-Chek Guide test strips Strip See Rx Instructions .Route Qty: 100 4RF Rx Instructions: test fasting and 2 hours post meals(4 times /day) whichever brand is covered by insurance Referrals / Follow Up: Cristi Fontaine MD [Primary Care Provider] -
[2023-02-18] MEDS: Naproxen 500 MG Tablet PO (18:50)
[2023-02-18] MEDS: 0.9% Saline Lock 10 ML Syringe IV (20:40)
--- NOTE | 2023-02-18 22:08 | NURSING ---
Epidural catheter removed w/ blue tip intact. Band aid placed over insertion site. Pt tolerated well.
[2023-02-19] MEDS: Naproxen 500 MG Tablet PO ×2 (04:23→13:18)
[2023-02-19 04:25] VITALS: BP 122/71; PULSE 82; RESP 16; TEMP 36.4
[2023-02-19] MEDS: Acetaminophen 500 MG Tablet 1000 MG PO ×2 (06:19→11:58)
[2023-02-19 08:08] VITALS: BP 105/67; PULSE 73; RESP 16; TEMP 36.3; O2SAT 96
--- NOTE | 2023-02-19 08:16 | PN.OBGYN_ITS ---
Subjective Subjective Patient doing well without complaints. Tolerating PO. Ambulating and voiding without difficulty. Feeding well. Denies chest pain, shortness of breath, calf pain/swelling, fevers, chills, lightheadedness. Objective Data Objective Data Vital Signs: Vital Signs Temp Pulse Resp BP Pulse Ox O2 Del Method 97.6 F L 82 16 122/71 H 99 Room Air 02/19/23 04:25 02/19/23 04:25 02/19/23 04:25 02/19/23 04:25 02/18/23 19:55 02/19/23 04:25 Oxygen Delivery Method Room Air Weight: 131 lb 2.801 oz Body Mass Index (BMI) 24.0 Intake & Output: Intake and Output for Last 24 Hours 02/17/23 02/18/23 02/19/23 23:59 23:59 23:59 Intake Total 1499.00 / 1499.00 Output Total 600 / 600 200 / 200 Balance 899.00 / 899.00 -200 / -200 Lab / Micro Data Attestation: I reviewed the patient's lab results. Result Diagrams: 02/18/23 08:15 02/18/23 08:15 Labs: Laboratory Results - last 24 hr 02/18/23 08:15: WBC 11.8 H, RBC 4.72, Hgb 12.8, Hct 38.8, MCV 82.2, MCH 27.1, MCHC 33.0, RDW Std Deviation 38.5, RDW Coeff of Dave 13.1, Plt Count 362, MPV 9.8, Immature Gran % (Auto) 1.200 H, Neut % (Auto) 66.6, Lymph % (Auto) 24.8, [place] % (Auto) 6.1, Eos % (Auto) 0.7, Baso % (Auto) 0.6, Absolute Neuts (auto) 7.8 H, Absolute Lymphs (auto) 2.91, Nucleated RBC % 0 02/18/23 08:15: Blood Type A NEGATIVE, Antibody Screen NEGATIVE 02/18/23 08:15: Creatinine 0.48 L, Estim Creat Clear Calc 139.24, Est GFR (MDRD) Af Amer 196, Est GFR (MDRD) Non-Af 162, Uric Acid 4.1, AST 19, ALT 14 02/18/23 08:15: Syphilis Total Ab Non-reactive 02/18/23 09:15: U Random Total Protein 31.2 H, Urine Creatinine 113.00, Protein/Creatinin Ratio 276 H 02/19/23 00:15: Screen NEGATIVE, Baby's Blood Type A POSITIVE, Baby's YEN NEGATIVE ROS Constitutional Constitutional: Reports systems reviewed and no addt'l complaints, except as documented; Denies anorexia or headache(s) Cardiovascular Cardiovascular: Reports systems reviewed and no addt'l complaints, except as documented; Denies dizziness, dyspnea, nausea or tachypnea Respiratory/Chest Respiratory/Chest: Reports systems reviewed and no addt'l complaints, except as documented; Denies cough, dyspnea, shortness of breath at rest or tachypnea Gastrointestinal Gastrointestinal: Reports systems reviewed and no addt'l complaints, except as documented; Denies abdominal pain, anorexia, constipation or nausea Genitourinary Genitourinary: Reports systems reviewed and no addt'l complaints, except as documented; Denies burning urination, difficulty urinating, dysuria, urinary frequency or urinary incontinence Musculoskeletal Musculoskeletal: Reports systems reviewed and no addt'l complaints, except as documented and back pain Integumentary Integumentary: Reports systems reviewed and no addt'l complaints, except as documented Neurologic Neurologic: Reports systems reviewed and no addt'l complaints, except as documented; Denies abnormal speech, dizziness or headache(s) Psychiatric Psychiatric: Reports systems reviewed and no addt'l complaints, except as documented Endocrine Endocrinology: Reports systems reviewed and no addt'l complaints, except as documented Hematologic/Lymphatic Hematologic/Lymphatic: Reports systems reviewed and no addt'l complaints, except as documented Physical Exam Const alert, oriented x3 and no apparent distress Neck full ROM Resp normal respiratory effort, normal air movement and no retractions Effort and Inspection: able to speak in complete sentences and symmetric chest movement GI soft to palpation Bladder / Kidney Exam: bladder normal to palpation Uterus Palpation: uterus fundus firm (U) Back/Spine normal ROM and normal to inspection Back/Spine Narrative: tenderness at epidural site Extremity normal to inspection, full ROM and no calf tenderness Psych mental status grossly normal, thought process normal and cooperative Assessment & Plan (1) Supervision of normal : COMMENT: PRR , Boy ,SAMSON 02/27/23, Spouse Johnathon PLAN: s/p PPD # 1 1. routine post delivery care 2. formula feeding- support given 3. rh negative-rhogam ordered 4. rubella immune 5.Discharge home if appropriate Charges/Coding Procedures Urinary/Genital [id number]: No Charge
--- NOTE | 2023-02-19 08:30 | DCINST_ITS ---
Discharge Instructions Diet Discharge Diet: No restrictions Activity May resume sexual activity in: 4-6 weeks Dressing / Incision Call your doctor if your incision/area has: Continuous Slow Oozing, Sudden Increased Bleeding, Increased Pain/ Swelling, Increased Redness and Foul Smelling Discharge Call your doctor if you observe: Fever of 101 or Higher, Inability to urinate, Inability to have a bowel movement, Using more than 1 pad per hour, Shortness of breath, Dizziness, Fainting spells, Chest pain, Increased palpitations (irregular heartbeat) and Calf discomfort Follow Up Care Please Follow Up With: Amelia Méndez DO Test Results: Test results from this visit will be discussed in further detail at your follow- up appointment, if applicable. Discharge Plan Admission Admit Date/Time: 02/18/23 07:50 Primary Reason for Your Visit: vaginal Attending Provider: Amelia Méndez Primary Care Provider: Cristi Fontaine Instructions Patient Instructions: After a Vaginal Discharge Orders/Prescriptions Prescriptions: No Action Flovent Diskus 50 mcg/actuation blister with device 1 inh inhalation BID PRN (Reason: Respiratory Distress) albuterol sulfate [ProAir HFA] 90 mcg/actuation HFA aerosol inhaler 2 puff inhalation Q6H PRN (Reason: shortness of breath) omeprazole 20 mg capsule,delayed release(DR/EC) 20 mg PO DAILY 30 Days Qty: 30 6RF ondansetron HCl 4 mg tablet 4 mg PO Q8H PRN (Reason: Nausea And Vomiting) famotidine [Pepcid] 20 mg tablet 20 mg PO DAILY omeprazole-sodium bicarbonate [Zegerid OTC] 20-1.1 mg-gram Capsule 1 cap PO DAILY hydroxyzine pamoate [Vistaril] 25 mg Capsule 25 mg PO QHS (DME) blood-glucose meter Misc See Rx Instructions .MEDSUPPLY Qty: 1 0RF Rx Instructions: As directed- Test fasting and 2 hours after meals (DME) lancets Misc See Rx Instructions .MEDSUPPLY Qty: 100 4RF Rx Instructions: As directed (DME) Accu-Chek Guide test strips Strip See Rx Instructions .Route Qty: 100 4RF Rx Instructions: test fasting and 2 hours post meals(4 times /day) whichever brand is covered by insurance Referrals / Follow Up: Cristi Fontaine MD [Primary Care Provider] - Disposition Disposition (needs filled in before D/C Order can be placed): Home, Self Care
[2023-02-19 11:44] VITALS: BP 101/64; PULSE 73; RESP 16; TEMP 36.5
[2023-02-19 17:45] VITALS: BP 109/71; PULSE 85; RESP 16; TEMP 37.1
== END 2023-02-19 20:10 | disposition home or self-care (01) | DRG 806 ==
LOC: WPOUT 07:53 → WP 10:24
PROVIDERS: Admitting Provider Obstetrics & Gynecology; PCP Internal Medicine; Visit Provider Obstetrics & Gynecology
DX: O21.0 Mild hyperemesis gravidarum (principal); Z37.0 Single live birth; O99.354 Diseases of the nervous system complicating childbirth; I73.00 Raynaud's syndrome without gangrene; M54.41 Lumbago with sciatica, right side; M54.42 Lumbago with sciatica, left side; J45.909 Unspecified asthma, uncomplicated; Z79.891 Long term (current) use of opiate analgesic; Z3A.38 38 weeks gestation of pregnancy; O69.81X0 Labor and delivery complicated by cord around neck, without compression, not applicable or unspecified; M99.03 Segmental and somatic dysfunction of lumbar region; M99.02 Segmental and somatic dysfunction of thoracic region; O99.52 Diseases of the respiratory system complicating childbirth; O99.892 Other specified diseases and conditions complicating childbirth; O70.0 First degree perineal laceration during delivery; Z80.42 Family history of malignant neoplasm of prostate; Z87.440 Personal history of urinary (tract) infections; Z86.16 Personal history of COVID-19
CPT/HCPCS: 59025; 59050; 82565; 82570; 84112; 84156; 84450; 84460; 84550; 85025; 85461; 86780; 86850; 86900; 86901; 99221; J7120; A4216; G0378; J2405; J2790

== ENCOUNTER → 2023-05-13 | Outpatient (CLI) | payer OTHER, SELFPAY ==
--- NOTE | 2023-05-13 14:28 | BI_ITS ---
MAMMOGRAPHY - BILATERAL DIAGNOSTIC REASON FOR EXAM: Female, 27 years old. Bilateral breast lumps. PERTINENT HISTORY: History of prior bilateral breast biopsies and fibroadenomas. TECHNIQUE: Digital bilateral breast alisha (3D mammographic acquisition) in the CC and MLO projections. 2-D mediolateral oblique (MLO) and craniocaudad (CC) views of both breasts were obtained. CAD: Full Field Digital Mammography with Computer Added Detection was performed. COMPARISON: Comparison is made with prior abdomen examination dated November 17, 2020. FINDINGS: Breast Composition: The breasts are extremely dense, which lowers the sensitivity of mammography. There is a 1.9 cm x 0.5 cm nodular density in the upper medial aspect of the right breast. Tissue clip markers are seen in both breasts from prior biopsies. No other significant abnormalities are identified. BI/DIAG MAMM W/CAD, BILAT IMPRESSION: Nodular density in the right breast. Correlation with ultrasound of both breasts is recommended for further evaluation. ASSESSMENT CATEGORY: BIRADS Category 0: Incomplete. Need additional imaging evaluation. A letter regarding these results will be sent to the patient by the facility within 30 days. Approximately 10% of breast cancers are not detected by mammography. A normal mammogram should not delay biopsy of a clinically suspicious abnormality. Electronically Signed: Casey Chacon MD at 15:48 EDT ,
--- NOTE | 2023-05-13 14:28 | US_ITS ---
STUDY: ULTRASOUND BREAST - RIGHT REASON FOR EXAM: Female, 27 years old. Bilateral breast lumps. History of prior fibroadenoma. TECHNIQUE: Axial and longitudinal images of the RIGHT breast were performed with a high resolution ultrasound transducer. # OF IMAGES: 76 COMPARISON: Comparison is made with prior mammogram dated May 13, 2023. FINDINGS: RIGHT Breast: Numerous well-defined hypoechoic nodules are seen scattered throughout the right breast. This is 1.9 cm by 2 cm x 1.2 cm hypoechoic nodule with increased vascularity at the 9:00 position of the breast at 3 cm from the nipple. There is also evidence of a 2 cm x 2.3 cm x 1.2 cm hypoechoic nodule with prior biopsy clip within it at the 1:00 position the breast at 3 cm from nipple. A similar appearing hypoechoic nodule measuring 1.3 cm x 1.6 cm x 0.9 cm is seen at the 2:00 position in the breast at 3 cm from the IMPRESSION: Multiple well-defined hypoechoic nodules in the right breast as described suggestive of fibroadenomas. ASSESSMENT CATEGORY: BIRADS Category 2: Benign. A letter regarding these results will be sent to the patient by the facility within 30 days. Electronically Signed: Casey Chacon MD at 14:56 EDT , STUDY: ULTRASOUND BREAST - LEFT REASON FOR EXAM: Female, 27 years old. Abnormal screening mammogram. History of multiple fibroadenomas. TECHNIQUE: Axial and longitudinal images of the LEFT breast were performed with a high resolution ultrasound transducer. # OF IMAGES: 76 COMPARISON: Comparison is made with prior mammogram done earlier in the day. FINDINGS: LEFT Breast: The lateral half of the breast was examined with ultrasound. Several well-defined hypoechoic nodular densities are seen. The largest measures 1.8 cm x 1.6 x 1.1 cm and is at the 3:00 position breast at 4 cm from nipple. These most likely represent fibroadenomas. US/Breast Complete Unilateral IMPRESSION: Several well-defined hypoechoic solid nodules in the lateral aspect of the left breast as described. This is suggestive of fibroadenomas as per the patient''s history. ASSESSMENT CATEGORY: BIRADS Category 2: Benign. A letter regarding these results will be sent to the patient by the facility within 30 days. Electronically Signed: Casey Chacon MD at 14:59 EDT ,
== END | disposition home or self-care (01) ==
LOC: OPBI 14:25
PROVIDERS: PCP Internal Medicine; Referring Provider Obstetrics & Gynecology; Visit Provider Obstetrics & Gynecology
DX: N63.21 Unspecified lump in the left breast, upper outer quadrant (principal)
CPT/HCPCS: 76641; 76642; 77062; 77066; G0279

== ENCOUNTER 2023-09-06 15:09 | Outpatient (RCR) | payer OTHER, SELFPAY ==
--- NOTE | 2023-09-06 18:58 | HP.PTEVAL_ITS ---
Patient's Visit Information Visit Information Visit Information: SULMA HILL is a 28 year old F referred to Physical Therapy by Dr. Betty Karimi DC with a diagnosis of R GROIN PAIN AND DYSFUNCTION OF PELVIC REGION. Date of Evaluation: 09/06/23 Physical Therapist: Felisa Laird PT, Cert MDT Visit Plan Frequency: 1-2x /Week Duration: 2-4 Months Plan: EXERCISES TO HELP RELIEVE PELVIC/R HIP PAIN LARGELY FOCUSING ON STRENGTHENING PELVIC, HIP AND CORE MUSCLES TO SUPPORT PELVIS SO PATIENT CAN MOVE AROUND EASIER. WILL ALSO INCLUDE GENTLE CORE AND LE STRETCHING TO RELEASE MUSCLE TIGHTNESS. WILL SEE PATIENT 1-2 TIMES A WK X 2-4 MONTHS WORKING TOWARD SET GOALS PATIENT INSURANCE/FINANCES AND CONSENT ALLOW. 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 PATIENT REPORTS IT IS A VERY DEMANDING JOB AND SHE WORKED ABOUT 50 HOURS LAST WEEK. LAST WEEK INVOLVED A LOT OF SITTING AND DRIVING. HAD A BABY 6 MONTHS AGO ( FEBRUARY 18, 2023). HAS ONE CHILD. VAGINAL DELIVERY. NO COMPLICATION WITH DELIVERY. DX'D WITH RH FACTOR, GESTATIONAL DIABETES AND HG (RARE ILLNESS IN ). BABY WAS DELIVERED AT 38 WEEKS AND EMERGENCY DELIVERY DUE TO ASPIRATION PNEUMONIA OF PATIENT. PATIENT WAS IN THE HOSPITAL WEEKLY FOR INFUSIONS DURING ENTIRE . Disability: NO Present symptoms: INTERMITTENT PAIN RADIATING FROM FRONT OF PELVIS/R GROIN/PUBIC BONE AREA TO THE RIGHT HIP. (NOT USUALLY THERE IN SITTING). PATIENT DENIES LBP. PATIENT DENIES VANIA LE PAIN, NUMBNESS OR TINGLING RADIATING DOWN THE LEGS OR IN THE FEET OR TOES. Present since: 3RD TRIMESTER OF . Pain Scale: WORST 8/10, LEAST 0/10 Currently: 0/10 Is it getting better, worse or staying the same: STAYING THE SAME Commenced as a result of: Symptoms at onset: SAME ONLY LESS INTENSE NOW. Worse: LIFTING OF R LEG, GETTING DRESSED, PUTTING PANTS ON, PUTTING SOCKS ON, EXERCISE, WALKING, LIFTING BABY, LYING ON R SIDE, PICKING HEAVY THINGS, ROLLING OVER IN BED. ON THE MOVE. CARRYING HEAVY OBJECTS. PROLONGED STANDING. GETTING IN AND OUT OF CAR. GOING UP STEPS LEADING WITH R LE (USING ON HR). Better: SITTING. LYING ON BACK OR L SIDE WHEN STILL. WHEN STILL. Disturbed sleep: YES Previous history/Previous treatment: PATIENT DENIES ANY HISTORY OF LOW BACK, HIP OR PELVIC PROBLEMS PRIOR TO THIS. NO CHIROPRACTIC PRIOR TO CURRENT. Treatment this episode: CHIROPRACTIC SINCE 3RD TRIMESTER - EVERY OTHER WEEK OR SO - TEMPORARY RELIEF ONLY. Coughing/sneezing/straining: POSITIVE FOR INCREASED PAIN. Gait: PATIENT REPORTS SHE ONLY WALKS WHEN SHE NEEDS TO NOW BECAUSE OF THE PAIN. SHE STATES SHE CAN'T GO TOO FAST AND SHE IS GUARDED. SHE REPORTS HER R FOOT SWINGS OUT TO THE SIDE INSTEAD OF FORWARD WHEN SHE LIFTS IT AND SHE STARTS TO LIMP WHEN SHE CARRIES THINGS. How long can you delay the need to urinate: LONG NEEDED TO GET TO THE BAT HROOM IN TIME. Prolapse (Falling out feeling): NO Frequency of Urination: NORMAL Ability to stop urine flow: NOT SURE Ability to initiate urine stream: YES Dyspareunia: YES Bowel Incontinence: NO Accidents: NO Unexplained weight loss: NO Imaging: NORMAL PER DR. KARIMI. PMH/Recent major surgery: UNREMARKABLE. 2017 L SHLD RECONSTRUCTION DUE TO REPEAT DISLOCATIONS. OTHER: PATIENT REPORTS SHE IS FEELING BETTER THAN USUAL TODAY. STATES HER PARENTS ARE IN TOWN AND SHE HASN'T BEEN CARRYING THE BABY FOR A FEW DAYS. Objective Objective: Sitting/Standing Posture: FAIR. INCREASED KYPHOSIS. NORMAL LORDOSIS. NO RELEVANT LATERAL SHIFT. Active Correction of posture: NE Other Observations: THIS PATIENT AMBULATES INDEP'LY INTO PT WITH FAIR CADANCE, NO AD'S, NO LOB AND MILD DECREASED VANIA STRIDE LENGTH. INDEP TRANSFER SIT TO STAND WITHOUT UE ASSIST. Sensory deficit: VANIA LE LIGHT TOUCH SENSATION GROSSLY INTACT AND SYMMETRICAL ROM deficit: VANIA LE HS AND GASTROC SOLEUS COMPLEX TIGHTNESS. L HIP ROM IS WFL ALL PLANES AND PATIENT DENIES PAIN WITH TESTING. R HIP FLEXION IS LIMITED TO 115 DEG WITH C/O END-RANGE TIGHTNESS. R HIP INTERNAL AND EXTERNAL ROTATION IS ALSO APPROX 30% LIMITED COMPARED TO L WITH END-RANGE TIGHTNESS. Motor deficit: L HIP 4/5, KNEE 5/5, ANKLE 5/5. R HIP FLEX 3-/5 ABD 3+/5 ADD 3+/5 EXT 4-/5, KNEE EXT 4-/5, KNEE FLEX 4-/5, ANKLE 5/5. PATIENT IS ABLE TO SLS ON VANIA LE'S X 1-2 SEC'S WITHOUT UE SUPPORT AND APPROX 5 SEC WITH LIGHT UE SUPPORT BUT FATIGUES QUICKLY. MILD HIP DROP R AND MOD HIP DROP L WITH SLS TESTING. Dural Signs: NEGATIVE VANIA LE'S. Lumbar mvmt loss: flex - NIL ext - MOD R SG - NIL L SG - NIL PATIENT C/O TIGHTNESS IN CENTRAL LOW BACK WITH LUMBAR EXTENSION ROM TESTING BUT OTHERWISE NO SIGNIFICANT SX'S WITH LUMBAR ROM TESTING. Postural Strength: Poor Core strength: POOR Palpation: TENDERNESS WITH VERY LIGHT PALPATION OF PUBIC SYMPHASIS REGION THAT REMAINS WORSE A RESULT. LUMBAR TENDERNESS L34 REGION. OTHER: PATIENT REPORTS SHE REALLY DIDN'T HAVE ANY PAIN, JUST TIGHTNESS, WITH ALL OF THE TESTING TODAY EXCEPT FOR THE LIGHT PALPATION OF THE PUBIC SYMPHASIS REGION AND SHE STATES THIS IS WHERE SHE FEELS LIKE THE PAIN HAS BEEN COMING FROM. SHE STATES SHE STOPPED GOING TO THE ORTHO DOCTOR BECAUSE SHE DOESN'T FEEL LIKE IT IS COMING FROM HER HIP. THIS PT RECOMMENDED FOLLOW UP WITH HER OBGYN AND SHE IS AGREEABLE. TREATMENT: NEUROMUSCULAR REEDUCATION - INSTRUCTION IN USE OF LUMBAR SUPPORT IN SITTING, AT LEAST SHORT BREAKS FROM SITTING AT EVERY 60 MINUTES, ACTIVITY MODIFICATIONS TO AVOID INCREASING PAIN SUCH LEADING UP STEPS WITH L LE (ONE STEP AT A TIME), MINIMIZING LIFTING, AND DECREASING PACE OF WALKING WHEN POSSIBLE. PATIENT COMMUNICATED A GOOD UNDERSTANDING OF INSTRUCTIONS GIVEN AND REPORTS SHE TENDS TO JUST TRY TO PUSH THROUGH THE PAIN. Balance/Special Test Scores Lower Extremity Functional Score: 36 Goals Goal 1:: DECREASE C/O PELVIC/HIP PAIN BY 50% Goal Time Frame: 8-12 Weeks Goal 2:: IMPROVE LEFS SCORE BY 10 POINTS Goal Time Frame: 8-12 Weeks Goal 3:: PATIENT WILL REPORT 70% RETURN TO PRIOR LEVEL OF FUNCTION Goal Time Frame: 8-12 Weeks Goal 4:: PATIENT WILL BE INDEP WITH A HEP FOR CONTINUED IMPROVEMENT ONCE FORMAL PHYSICAL THERAPY CONCLUDES. Goal Time Frame: 8-12 Weeks Anticipated Interventions Patient/Client Instruction: Educate patient on: Condition, Plan of Care and Risk Factors For the Purpose of:: To improve self management Therapeutic Exercise to Include: Strength training, Body mechanics, Postural training, Flexibilty training and Dynamic Lumbar Stabilization For the Purpose of:: To decrease pain, To increase ROM, To improve muscle performance and motor function, To increase tolerance to activity/con dition/position and To improve ability of physical actions for home/community/work/leisure Text: Thank you for the opportunity to evaluate your patient. For Medicare and Medicare HMO plans, please review the plan of care and approve it. It will need to be FAXED BACK to us at [phone] for Medicare purposes. For Medicare only, by signing this I certify the plan of care. Please let me know if there are questions or concerns regarding this plan of care. Physician Signature: Dat e:
--- NOTE | 2024-03-06 15:55 | HP.PT.NRP ---
Patient Information Patient Information: SULMA HILL was seen in my office for initial evaluation on 09/06/23. The following Plan of Care was established for this patient: POC Established Initial Frequency: 1-2x /Week Initial Duration: 2-4 Months Anticipated Interventions Patient/Client Instruction: Educate patient on: Condition, Plan of Care and Risk Factors For the Purpose of:: To improve self management Therapeutic Exercise to Include: Strength training, Body mechanics, Postural training, Flexibilty training and Dynamic Lumbar Stabilization For the Purpose of:: To decrease pain, To increase ROM, To improve muscle performance and motor function, To increase tolerance to activity/condition/position and To improve ability of physical actions for home/community/work/leisure Last Seen Last Seen: This patient was last seen in our office 09/06/23. Pertinent comments regarding their Physical therapy will appear below: This patient has not returned to Physical Therapy and is appropriate to return to MD for further follow-up as needed. At this point I will be discontinuing this patient from physical therapy. I would be happy to see this patient again in the future if found appropriate by the physician. Thank you! Felisa Laird, PT, Cert MDT Balance/Gait/Functional tests Balance/Special Test Scores Lower Extremity Functional Score: 36
== END 2023-09-06 19:00 | disposition home or self-care (01) ==
LOC: PT 15:09
PROVIDERS: PCP Internal Medicine; Visit Provider Chiropractor
DX: R10.31 Right lower quadrant pain (principal); M99.05 Segmental and somatic dysfunction of pelvic region
CPT/HCPCS: 97162

== ENCOUNTER 2023-09-16 11:47 | Emergency (ER) | payer OTHER, SELFPAY ==
[2023-09-16 11:47] VITALS: BP 124/73; PULSE 98; RESP 14; TEMP 36.4; O2SAT 99; BMI 20.1
--- NOTE | 2023-09-16 12:38 | CT_ITS ---
EXAM: CT HEAD WITHOUT INTRAVENOUS CONTRAST CLINICAL INDICATION: Pain TECHNIQUE: Multiple axial images were obtained of the head without intravenous contrast. This CT exam was performed using one or more of the following dose reduction techniques: automated exposure control, adjustment of the mA and/or kV according to patient size, and/or use of iterative reconstruction technique. COMPARISON: No relevant prior studies available. FINDINGS: BRAIN AND EXTRA-AXIAL SPACES: Normal. No intra- or extra-axial hemorrhage. No acute infarct. No intracranial mass or mass effect. There is preservation of the wakefield/white matter interface. Posterior fossa structures are unremarkable. Ventricles are appropriate for age. No hydrocephalus. Basal cisterns are patent. BONES/JOINTS: No suspicious lytic or blastic abnormality. SINUSES: Mucosal thickening noted within the right maxillary sinus. MASTOID AIR CELLS: Normal. Clear. CT/Brain/Head without Contrast IMPRESSION: No acute intracranial abnormality. Electronically Signed: Jose Dickinson MD at 15:15 EDT ,
--- NOTE | 2023-09-16 12:38 | EX.ED.VIS.HA ---
HPI History of Present Illness Chief Complaint: Headache Informant: patient Narrative Narrative: New generalized nontraumatic headache for 3 days. Yesterday had Ora. Yesterday nausea and vomiting, saw urgent care yesterday COVID flu RSV negative. Put on prednisone. She is unable to keep it down. Denies recent head injuries. Denies fevers. 6 months . No issues with that. High sensitivities to opiate pain medicines. Denies similar symptoms in the past. No recent head CTs. Prior similar symptoms: No PFSH PFSH Medical History Acute kidney injury Adverse reaction to COVID-19 vaccine Asthma COVID-19 affecting in first trimester COVID-19 affecting in second trimester Familial hypercholesterolemia Family history of early CAD Genital herpes affecting History of facial fracture Hyperemesis gravidarum IUD contraception Left ear pain Migraines Nausea & vomiting Raynauds disease Raynauds phenomenon Rh negative status during Right groin pain Right hip pain Seasonal allergies Home Medications multivitamin 1 tab PO DAILY 04/29/23 [History Last Taken Unknown] levonorgestrel 21 mcg/24 hours (8 yrs) 52 mg intrauterine device (Mirena) 1 device intrauterine ONCE 05/27/23 [History Last Taken Unknown] methylprednisolone 4 mg tablets in a dose pack (Medrol (Bharat)) See Rx Instructions PO PER PKG DIR #21 tabs 09/15/23 [Rx Last Taken Unknown] ondansetron 4 mg disintegrating tablet 4 mg PO Q8H PRN PRN Nausea #10 tabs 09/16/23 [Rx Last Taken Unknown] Allergy/AdvReac Type Severity Reaction Status Date / Time Iodinated Contrast Media Allergy Severe Anaphylaxis Verified 09/15/23 14:54 shellfish derived Allergy Severe Anaphylaxis Verified 09/15/23 14:54 hydrocodone [From Vicodin] AdvReac Intermediate Vomiting Verified 09/15/23 14:54 oxycodone [From Percocet] AdvReac Intermediate Vomiting Verified 09/15/23 14:54 Family History Father Prostate CA Hypertension Osteoporosis Heart disease Myocardial infarction, Onset Age: 30 Cancer prostate Grandmother Diabetes Brother Depression Bipolar 1 disorder Schizophrenia Transgender Mother Kayce Anderson syndrome (geniculate herpes zoster) Surgical History History of breast biopsy History of surgery Hx of shoulder surgery Social History adopted: No household members: spouse housing: house current occupational status: employed current occupation: [employer] current occupational exposures/hazards: Yes (Burning houses) pets and animals: Yes pets and animals: dog(s) history of recent travel: Yes (, [facility], [place], [place], [place]) out of state: Yes out of country: Yes sexually active: Yes Smoking Status: Never smoker alcohol intake: former details: social substance use type: does not use diet: lactose free well-balanced diet: daily or most days caffeine: No during the past year weight has: remained stable what type of physical activity do you participate in: walking frequency: 1-2 times per week carey/jain: None seatbelt use: always do you feel safe at home: Yes additional social history: - Johnathon ROS ROS ED Constitutional Constitutional ED: Denies chills, fever(s) or sweats Eyes Eyes: Denies change in vision ENT ENT ED: Denies dysphagia or sore throat Cardiovascular Cardiovascular: Denies chest pain, leg edema, palpitations or racing heartbeat Respiratory/Chest Respiratory/Chest: Denies cough, dyspnea or dyspnea on exertion Gastrointestinal Gastrointestinal: Reports nausea and vomiting; Denies abdominal pain or diarrhea Genitourinary Genitourinary ED: Denies dysuria, hematuria or urinary frequency Musculoskeletal Musculoskeletal: Denies back pain, extremity pain or neck pain Integumentary Denies rash or wounds Neurologic Neurologic: Reports headache(s); Denies paresthesias or weakness EXAM Physical Exam Const Vital Signs: 09/16/23 11:47 09/16/23 16:00 Temperature 97.6 F L 97.6 F L Temperature Source Temporal Pulse Rate 98 64 Respiratory Rate 14 14 Blood Pressure 124/73 H 123/78 H Blood Pressure Mean 90 93 Pulse Ox 99 99 Oxygen Delivery Method Room Air Positive well nourished and well developed General Appearance ED: well developed and NAD HEENT Reports moist mucous membranes normocephalic and atraumatic Eyes PERRL, EOMs intact bilaterally and conjunctivae normal General Eye ED: Yes normal appearance of both eyes Neck no lymphadenopathy and supple General: Negative for tenderness Chest Wall Chest: Negative for tenderness Resp normal respiratory effort and normal air movement Effort and Inspection: symmetric chest movement; Negative for respiratory distress Cardio regular rate, regular rhythm and no murmurs Peripheral Pulses: pulses 2+ throughout GI normal to inspection, nondistended, normoactive bowel sounds and non-tender Palpation: Negative for guarding or rebound tenderness present Back/Spine no CVA tenderness and no thoracic nor lumbar tenderness Extremity normal to inspection General Extremety ED: Negative for edema or tenderness General Extremity: Negative for edema Neuro oriented x3, CN's II-XII intact bilaterally and no sensory deficits noted Sensorium / Orientation: awake and alert Skin no rashes or lesions noted and no wounds MDM MDM MDM Narrative Medical decision making narrative: Interventions / MDM: Differential diagnosis: Migraine headache, nausea vomiting Diagnosis considered but do not suspect: Intracranial hemorrhage, intracranial mass however CT negative. No meningismal findings. My EKG interpretation: N/A Imaging independently reviewed and interpreted by myself: CT brain: No acute process. Also read by radiology. External documents reviewed: N/A Test considered but not ordered:N/A ED course: New headache with migraine symptoms. IV established migraine cocktail Reglan Benadryl and fluids. CT brain ordered. No meningismus. CT brain negative reevaluation symptoms were improving, additional Toradol. P.o. challenge in the ED with no difficulties. Discussed migraine symptoms. Prescription for Zofran due to nausea and vomiting. Outpatient follow-up. All questions were answered. Re-evaluation: stable Disposition discussed with patient/family/significant other: Patient Case discussed with consulting clinician: N/A This note was generated with [employer] dictation software. It may contain incorrect words, spelling, and punctuation that were not noted in checking the note before signing. Radiography Diagnostic Testing: Clinical Impression(s) from Imaging Studies Brain CT 09/16/23 12:38 IMPRESSION: No acute intracranial abnormality. Electronically Signed: Jose Dickinson MD at 15:15 EDT , Discharge Plan Triage Chief Complaint: Headache ED Provider: Michael Mireles Dx/Rx/DC Orders Clinical Impression: Headache, migraine, Nausea & vomiting Instructions: ED, Migraine (Classical), ED Vomiting (Adult) Prescriptions: New ondansetron [ondansetron] 4 mg tablet,disintegrating 4 mg PO Q8H PRN PRN (Reason: Nausea) Qty: 10 0RF No Action multivitamin Tablet 1 tab PO DAILY Mirena 21 mcg/24 hours (8 yrs) 52 mg intrauterine device 1 device intrauterine ONCE Rx Instructions: as a single dose methylprednisolone [Medrol (Bharat)] 4 mg tablets,dose pack See Rx Instructions PO PER PKG DIR Qty: 21 0RF Rx Instructions: PO PER PKG DIR Primary Care Provider: Cristi Fontaine Referrals: Cristi Fontaine MD [Primary Care Provider] - 1-2 Weeks Activity Restrictions/Additional Instructions: CT brain negative. Continue oral fluids use Zofran as needed. Follow-up with your doctor. Disposition Disposition: Home, Self Care Discharge Date/Time: 09/16/23 16:03
[2023-09-16] MEDS: DiphenhydrAMINE 50 MG/ML Syringe 25 MG IV (13:36)
[2023-09-16] MEDS: 0.9% Normal Saline (1000mL) 1,000 ML 999 ML IV (13:37)
[2023-09-16] MEDS: Metoclopramide 10 MG/2 ML Vial IV (13:37)
[2023-09-16] MEDS: Ketorolac 15 MG/ML Vial IV (15:35)
[2023-09-16 16:00] VITALS: BP 123/78; PULSE 64; RESP 14; TEMP 36.4; O2SAT 99
== END 2023-09-16 16:03 | disposition home or self-care (01) ==
PROVIDERS: Emergency Provider Emergency Medicine; PCP Internal Medicine; Visit Provider Emergency Medicine
DX: G43.909 Migraine, unspecified, not intractable, without status migrainosus (principal); E78.01 Familial hypercholesterolemia; R11.2 Nausea with vomiting, unspecified; Z86.16 Personal history of COVID-19
CPT/HCPCS: 70450; 99283; J7030; A4216

== ENCOUNTER → 2024-07-04 | Outpatient (CLI) | payer OTHER, SELFPAY ==
--- NOTE | 2024-07-04 08:52 | BI_ITS ---
MAMMOGRAPHY - BILATERAL DIAGNOSTIC REASON FOR EXAM: Female, 29 years old. Bilateral breast lumps. PERTINENT HISTORY: History of a bilateral fibroadenomas. Aunt with breast cancer. TECHNIQUE: Digital bilateral breast alisha (3D mammographic acquisition) in the CC and MLO projections. 2-D mediolateral oblique (MLO) and craniocaudad (CC) views of both breasts were obtained. CAD: Full Field Digital Mammography with Computer Added Detection was performed. COMPARISON: Comparison is made with prior study dated May 13, 2023. FINDINGS: Breast Composition: The breasts are extremely dense, which lowers the sensitivity of mammography. A tissue clip marker is seen in the deep upper central portion of the right breast. The palpable lump in the left breast corresponds to a 1.3 cm x 1.8 cm well-defined nodule. There is also evidence of a 1.2 cm x 1.3 cm well-defined nodule in the upper lateral aspect of the left breast. A tissue clip marker is seen in the retroareolar region of the left breast. The palpable abnormality in the right breast corresponds to a 2 cm x 1.3 cm well-defined nodule in the slightly upper lateral aspect of the breast. Correlation with ultrasound is recommended. No other significant abnormalities are identified. BI/DIAG MAMM W/CAD, BILAT IMPRESSION: Bilateral breast nodules as described. Correlation with ultrasound is recommended. ASSESSMENT CATEGORY: BIRADS Category 0: Incomplete. Need additional imaging evaluation. A letter regarding these results will be sent to the patient by the facility within 30 days. Approximately 10% of breast cancers are not detected by mammography. A normal mammogram should not delay biopsy of a clinically suspicious abnormality. Electronically Signed: Casey Chacon MD at 10:04 EDT ,
--- NOTE | 2024-07-04 08:52 | US_ITS ---
STUDY: ULTRASOUND BREAST - LEFT REASON FOR EXAM: Female, 29 years old. Left breast lump. TECHNIQUE: Axial and longitudinal images of the LEFT breast were performed with a high resolution ultrasound transducer. # OF IMAGES: 21 COMPARISON: Comparison is made with prior mammogram done earlier today. Comparison is also made with prior sonogram of the left breast dated May 13, 2023. FINDINGS: LEFT Breast: The palpable lump corresponds to 1.4 cm x 1.5 cm x 1.2 cm well-defined hypoechoic nodule at the 12:00 position of the breast at 2 cm from nipple. This most likely represents a fibroadenoma. This most likely represents a fibroadenoma. US/Breast Limited Unilateral IMPRESSION: Stable examination. ASSESSMENT CATEGORY: BIRADS Category 2: Benign. A letter regarding these results will be sent to the patient by the facility within 30 days. Electronically Signed: Casey Chacon MD at 10:34 EDT ,
--- NOTE | 2024-07-04 09:33 | US_ITS ---
STUDY: ULTRASOUND BREAST - RIGHT REASON FOR EXAM: Female, 29 years old. Right breast lump. TECHNIQUE: Axial and longitudinal images of the RIGHT breast were performed with a high resolution ultrasound transducer. # OF IMAGES: 26 COMPARISON: Comparison is made with prior mammogram done earlier today as well as prior ultrasound of the right breast dated May 13, 2023. FINDINGS: RIGHT Breast: The palpable lump corresponds to a 1.8 cm x 1.8 cm x 1.3 cm well-defined hypoechoic nodule at 9:00 position breast at 4 cm from nipple. This most likely represents a fibroadenoma. This is unchanged. US/Breast Limited Unilateral IMPRESSION: 1.8 cm x 1.8 cm x 1.3 cm well-defined hypoechoic nodule at the 9:00 position of the breast at 4 cm from nipple. This corresponds to the palpable abnormality and most likely represents a fibroadenoma per patient history. ASSESSMENT CATEGORY: BIRADS Category 2: Benign. A letter regarding these results will be sent to the patient by the facility within 30 days. Electronically Signed: Casey Chacon MD at 10:35 EDT ,
== END | disposition home or self-care (01) ==
LOC: OPBI 08:50
PROVIDERS: PCP Internal Medicine; Referring Provider Obstetrics & Gynecology; Visit Provider Obstetrics & Gynecology
DX: N63.20 Unspecified lump in the left breast, unspecified quadrant (principal); N63.10 Unspecified lump in the right breast, unspecified quadrant; R92.8 Other abnormal and inconclusive findings on diagnostic imaging of breast
CPT/HCPCS: 76642; 77062; 77066; G0279

== ENCOUNTER 2024-09-17 14:25 | Emergency (ER) | payer OTHER, SELFPAY ==
[2024-09-17 14:25] VITALS: BP 138/76; PULSE 90; RESP 16; TEMP 36.6; O2SAT 100; BMI 19.8
--- NOTE | 2024-09-17 15:33 | EX.ED.VIS.HA ---
HPI History of Present Illness Chief Complaint: Headache Narrative Narrative: 29-year-old female past medical history of migraine headaches, had UTI symptoms starting on Wednesday, 2 days ago. She took leftover antibiotics that she had from her previous UTI in the form of nitrofurantoin, and yesterday developed a migraine headache. She is unsure if her migraine was triggered by her UTIs she complains of burning with urination. With her left-sided headache, its associated with photophobia and phonophobia, as well as nausea and vomiting. She she has vomited a point where she has been dry heaving. She currently rates her headache a 7. She denies any numbness or tingling of her arms or legs. No exacerbating or alleviating factors. [facility] Medical History Headache Sinusitis Right hip pain Family history of early CAD Familial hypercholesterolemia Left ear pain Right groin pain Genital herpes affecting COVID-19 affecting in second trimester Rh negative status during Hyperemesis gravidarum Nausea & vomiting Raynauds phenomenon History of facial fracture Migraines Acute kidney injury Asthma Seasonal allergies Adverse reaction to COVID-19 vaccine COVID-19 affecting in first trimester Raynauds disease IUD contraception Home Medications ?Medication ?Instructions ?Recorded ?Last Taken ?Type levonorgestrel 21 mcg/24 hr (up to 1 device intrauterine ONCE 05/27/23 Unknown History 8 years) 52 mg intrauterine device (Mirena) magnesium oxide 500 mg PO DAILY 06/23/24 Unknown History nitrofurantoin 100 mg PO DAILY 30 days #30 caps 06/23/24 Unknown Rx monohydrate/macrocrystals 100 mg capsule (Macrobid) Allergy/AdvReac Type Severity Reaction Status Date / Time Iodinated Contrast Media Allergy Severe Anaphylaxis Verified 09/17/24 14:28 shellfish derived Allergy Severe Anaphylaxis Verified 09/17/24 14:28 hydrocodone (From Vicodin) AdvReac Intermediate Vomiting Verified 09/17/24 14:28 oxycodone (From Percocet) AdvReac Intermediate Vomiting Verified 09/17/24 14:28 Family History Father Prostate CA Hypertension Osteoporosis Heart disease Myocardial infarction, Onset Age: 30 Cancer prostate Grandmother Diabetes Brother Depression Bipolar 1 disorder Schizophrenia Transgender Mother Pomerene Anderson syndrome (geniculate herpes zoster) Surgical History History of surgery Hx of shoulder surgery History of breast biopsy Social History adopted: No household members: spouse housing: house current occupational status: employed current occupation: [employer] current occupational exposures/hazards: Yes (Burning houses) pets and animals: Yes pets and animals: dog(s) history of recent travel: Yes (, [employer] [place], [place], [place], [place]) out of state: Yes out of country: Yes sexually active: Yes Smoking Status: Never smoker alcohol intake: former details: social substance use type: does not use diet: lactose free well-balanced diet: daily or most days caffeine: No during the past year weight has: remained stable what type of physical activity do you participate in: walking frequency: 1-2 times per week carey/orthodox: None seatbelt use: always do you feel safe at home: Yes additional social history: - Johnathon ROS ROS ED ROS Narrative Constitutional: No fever, no chills. HEENT: No sore throat. No neck pain. No loss of vision. No rhinorrhea. Cardiovascular: No chest pain. No palpitations. No pedal edema. Respiratory: No cough, no shortness of breath. Abdominal: No abdominal pain. Positive nausea and vomiting/dry heaving. Genitourinary: Positive dysuria. No hematuria. Musculoskeletal: No myalgias. No arthralgias. Neurologic: Left-sided headache associated with photophobia and phonophobia. No paresthesias. No dizziness. No lightheadedness. Skin: No rash. No change in color. EXAM Physical Exam Narrative Exam Narrative: Afebrile. Vital signs noted. HEENT: Normocephalic. Atraumatic. PERRL, EOMI. Neck soft and supple. No point tenderness or step off. Cardiovascular: Regular rate and rhythm. No murmurs, rubs, or gallops appreciated. Respiratory: No tachypnea. Lungs clear to auscultation bilaterally. Gastrointestinal: Abdomen soft, nontender, with normoactive bowel sounds. No rebound or guarding. Neurological: Awake. Alert. Oriented x 3. Nonfocal, nonlateralizing. Patellar DTRs equal and symmetric. Skin: No rash. Normal color. No pallor. Musculoskeletal: No pedal edema. Full range of motion extremities. Const Vital Signs: 09/17/24 14:25 09/17/24 16:25 Temperature 97.9 F Temperature Source Temporal Pulse Rate 90 69 Respiratory Rate 16 Blood Pressure 138/76 H 108/74 Blood Pressure Mean 96 85 Pulse Ox 100 99 Oxygen Delivery Method Room Air Room Air MDM MDM MDM Narrative Medical decision making narrative: Differential diagnosis includes but not limited to nausea and vomiting with versus UTI versus migraine headache, recurrent. She states that her last headache for which she had to come to the ED was a year ago but she thinks that that was related to a concussion. I do not feel that she requires CT imaging of the brain. I do not feel she really requires laboratory work to look for dehydration. There is a shortage of IV fluids, and she will be administered Compazine and Benadryl for her headache. I will obtain serum test as well, and check her UA to make sure she does not require more antibiotics. I reviewed her laboratory work and she has a negative serum test. Urinalysis is negative for infection with 0-5 WBCs and negative nitrites. There are 15 ketones. I do not feel she requires more antibiotics. After Compazine and Benadryl, repeat examination shows her ambulatory to the bathroom without difficulty and she states that her headache has resolved. At this point in time, I feel she can be discharged to follow-up with her primary care provider. Return instructions to the emergency department were reviewed. Disposition is discharged home in stable condition. Lab Data Labs: Laboratory Results - last 24 hr 09/17/24 09/17/24 13:47 15:48 Serum , Qual NEGATIVE Urine Color Yellow Urine Clarity Sl. Cloudy Urine pH 6.5 Ur Specific [place] 1.015 Urine Protein 15 H Urine Glucose (UA) Normal Urine Ketones 15 H Urine Occult Blood Negative Urine Nitrite Negative Urine Bilirubin Negative Urine Urobilinogen Normal Ur Leukocyte Esterase 25 H Urine RBC 0-5 SEEN Urine WBC 0-5 SEEN Ur Squamous Epith Cells 0-5 SEEN Ur Renal Epithelial Cell 0-5 SEEN Urine Bacteria 1+ Urine Mucus 1+ Discharge Plan Triage Chief Complaint: Headache ED Provider: Layo Dumont Dx/Rx/DC Orders Clinical Impression: Migraine headache, Nausea and vomiting Instructions: ED, Migraine (Classical), ED Vomiting (Adult) Prescriptions: No Action Mirena 21 mcg/24 hours (8 yrs) 52 mg intrauterine device 1 device intrauterine ONCE Rx Instructions: as a single dose magnesium oxide 500 mg magnesium tablet 500 mg PO DAILY nitrofurantoin monohyd/m-cryst [Macrobid] 100 mg capsule 100 mg PO DAILY 30 Days Qty: 30 6RF Rx Instructions: must administer with a meal/food Primary Care Provider: Cristi Fontaine Referrals: Cristi Fontaine MD [Primary Care Provider] - 1 Week if not improving Print Language: Kinyarwanda Disposition Disposition: Home, Self Care
[2024-09-17] MEDS: DiphenhydrAMINE 50 MG/ML Syringe 25 MG IV (15:44)
[2024-09-17] MEDS: proCHLORPERazine 10 MG/2 ML Vial IV (15:44)
[2024-09-17 16:02] LABS: Color, Urine Yellow (Yellow); Glucose, Dipstick Normal (Normal); Ketone-Dipstick 15 mg/dl (Negative); Leukocyte Esterase-Dipstick 25 /ul (Negative); Nitrite-Dipstick Negative (Negative); Occult Blood-Urine Negative /ul (Negative); Protein-Dipstick 15 mg/dl (Negative); Specific Gravity, Urine 1.015 (1.002-1.030); Urine Bilirubin Dipstick Negative (Negative); Urine Clarity Sl. Cloudy (Clear); Urine Urobilinogen Normal (Normal); Urine pH 6.5 (5.0 - 8.0)
[2024-09-17 16:08] LABS: Squamous Epithelial Cells - UA 0-5 SEEN /hpf (5-10)
[2024-09-17 16:09] LABS: Bacteria 1+ /hpf (None Seen); Mucous, Urine 1+ /hpf (<or=2+); Red Blood Cells-Urine 0-5 SEEN /hpf (0-5); White Blood Cells 0-5 SEEN /hpf (0-5)
[2024-09-17 16:10] LABS: Renal Epithelial Cells 0-5 SEEN /hpf (0-5)
[2024-09-17 16:19] LABS: Internal QC Validated? YES +Cl - CLEAR BKGD; Pregnancy, Serum, hCG Quali. NEGATIVE Negative; Record Kit Lot#, Serum Preg. 869294
[2024-09-17 16:25] VITALS: BP 108/74; PULSE 69; O2SAT 99
[2024-09-17 17:06] VITALS: BP 110/68; PULSE 69; RESP 16; TEMP 36.1; O2SAT 99
== END 2024-09-17 17:10 | disposition home or self-care (01) ==
PROVIDERS: Emergency Provider Emergency Medicine; PCP Internal Medicine; Visit Provider Emergency Medicine
DX: G43.909 Migraine, unspecified, not intractable, without status migrainosus (principal); E78.01 Familial hypercholesterolemia; R11.2 Nausea with vomiting, unspecified; R30.0 Dysuria; Z86.16 Personal history of COVID-19; Z87.440 Personal history of urinary (tract) infections
CPT/HCPCS: 81001; 84703; 96374; 96375; 99283; A4216

== ENCOUNTER → 2025-08-23 | Outpatient (CLI) | payer OTHER, SELFPAY ==
[2025-08-30 09:09] LABS: HPV APTIMA, High Risk Negative (Negative)
== END | disposition home or self-care (01) ==
LOC: LABSPEC 16:54
PROVIDERS: PCP Internal Medicine; Referring Provider Obstetrics & Gynecology; Visit Provider Obstetrics & Gynecology
DX: Z12.4 Encounter for screening for malignant neoplasm of cervix (principal)
CPT/HCPCS: 87624; 88175; G0145

== ENCOUNTER → 2025-09-03 | Outpatient (CLI) | payer OTHER, SELFPAY ==
--- NOTE | 2025-09-03 14:00 | BI_ITS ---
EXAM: DIAG MAMM W/CAD, BILAT N/A CLINICAL HISTORY: F, Age 30 y/o , BILATERAL BREAST LUMPS. History of bilateral breast biopsies. Biopsies were benign. TECHNIQUE: Procedure Code: [id number] Modality: MG Procedure: DIAG MAMM W/CAD, BILAT. COMPARISON: Prior exam(s) dated 07/04/2024 and 05/13/2023. Breast ultrasounds dated 07/04/2024 and 05/13/2023 were also reviewed.. FINDINGS: TISSUE DENSITY: The breasts are extremely dense, which lowers the sensitivity of mammography. Bilateral Breast Mammographic Findings: Radiopaque markers are placed over the right and left breast palpable abnormalities. There is a palpable abnormality in the lateral, middle 3rd aspect of the right breast correlating to a mass. It is difficult to determine the size of the mass due to the extremely dense breast tissue obscuring most of the borders. Further workup with ultrasound will be performed for further evaluation. There are additional masses and masslike densities seen elsewhere in the right breast. A complete right breast ultrasound will be performed for further evaluation. Benign round microcalcifications are seen in the right breast. A radiopaque clip is seen in the right breast. The biopsy was benign. Post biopsy site is stable. 2 radiopaque markers are placed over the left breast palpable abnormalities. These are located laterally within the breast. Partially obscured isodense masses are associated with the palpable areas. The largest mass is located more laterally within the breast and measures 2.8 cm in greatest dimension. The smaller mass borders are obscured by the dense breast tissue and it is difficult to determine the exact size. There are other additional nodular masslike densities seen elsewhere in the left breast. A complete left breast ultrasound will be performed for further evaluation. A radiopaque clip is seen in the retroareolar region, slightly lateral aspect of the breast. This area appears stable. Benign round microcalcifications are seen in the left breast. BI/DIAG MAMM W/CAD, BILAT IMPRESSION: A complete bilateral breast ultrasound will be performed for further evaluation of the palpable abnormalities and bilateral breast masses. Please see that report. OVERALL FINAL ASSESSMENT BI-RADS 0: INCOMPLETE - NEED ADDITIONAL IMAGING EVALUATION. RECOMMENDATION: Ultrasound Recommended Additional Recommendation none A letter with findings and recommendations will be mailed to the patient. Reading Location: [id number]
--- NOTE | 2025-09-03 14:00 | US_ITS ---
PROCEDURE: BREAST COMPLETE UNILATERAL 09/03/2025 REASON FOR EXAM: F, Age 30 y/o , RIGHT BREAST LUMP. Palpable abnormality right breast. Patient states palpable abnormality is increasing in size. COMPARISON: Mammogram dated 09/03/2025 and 07/04/2024. Ultrasounds dated 07/04/2024 and 05/13/2023 were also reviewed.. TECHNIQUE: Procedure Code: [id number] Modality: US Procedure: BREAST COMPLETE UNILATERAL. A complete right breast ultrasound was performed. All 4 quadrants were scanned as well as the retroareolar region. FINDINGS: There are 2 solid masses in the right breast which warrant biopsy in order to completely exclude a malignancy. These masses are located at 9 o'clock, 5 cm from the nipple position and 4 o'clock, 6 cm from the nipple position. There is a solid hypoechoic mass at the 9 o'clock, 5 cm from the nipple position which has heterogeneous echotexture and slightly irregular margins. This does correlate to the palpable abnormality. This mass measures 1.7 x 1.6 x 1.1 cm. Biopsy is warranted in order to completely exclude a malignancy since it is increasing in size according to the patient. There is a solid hypoechoic irregularly marginated heterogeneous mass in the right breast at the 4 o'clock, 6 cm from nipple position measuring 5 x 5 x 4 mm. There is flow along the periphery. Biopsy is warranted in order to completely exclude a malignancy. The remaining masses described below have benign features. Short-term six-month follow-up ultrasound is recommended to document stability of the following masses: There is a solid hypoechoic mass in the right breast at 10 o'clock, 8 cm from nipple position measuring 10 x 9 x 9 mm. This has blood flow along the periphery. The mass does not produce any posterior shadowing. There is a solid hypoechoic mass at the 12 o'clock, 7 cm from the nipple position. This mass is wider than it is tall and does not produce any posterior shadowing. This mass measures 1.4 x 1.4 x 1.1 cm. There are some blood flow within the mass. There is a solid hypoechoic mass at the 1 o'clock, 6 cm from the nipple position which has heterogeneous echotexture. This mass measures 1.4 x 1.4 x 0.8 cm. There is a solid hypoechoic mass at the 6 o'clock, 5 cm from nipple position measuring 1.8 x 1.7 x 1.0 cm. This mass does have blood flow. The mass is wider than it is tall and does not produce any posterior shadowing. There is a solid hypoechoic mass at the 4 o'clock, 7 cm from the nipple position measuring 9 x 8 x 6 mm. This mass has smooth margins. It is wider than it is tall and does not produce any posterior shadowing. It is similar when compared to the prior ultrasound exams. US/Breast Limited Unilateral IMPRESSION: There are 2 solid masses in the right breast which warrant biopsy in order to c ompletely exclude a malignancy. These masses are located at 9 o'clock, 5 cm from the nipple position and 4 o'clock, 6 cm from th e nipple position. Short-term six-month follow-up ultrasound is recommended to document stability of the remaining masses. BI-RADS 4: SUSPICIOUS RECOMMENDATION: Biopsy Recommended Reading Location: [id number]
--- NOTE | 2025-09-03 14:00 | US_ITS ---
PROCEDURE: BREAST COMPLETE UNILATERAL 09/03/2025 REASON FOR EXAM: F, Age 30 y/o , LEFT BREAST LUMPS 2 palpable abnormalities in the left breast which the patient states are increasing in size. Inconclusive mammogram. Masses seen on mammogram. Evaluate. COMPARISON: Mammogram dated 09/03/2025 and 07/04/2024 TECHNIQUE: Procedure Code: USBRSTLIMIT Modality: US Procedure: BREAST LIMITED UNILATERAL FINDINGS: There are solid hypoechoic masses in the left breast. 2 of the masses do correlate to the palpable areas which the patient states are increasing in size. These are located at the 3 o'clock, 6 cm from nipple position measuring 3.0 x 2.0 x 1.1 cm and 2 o'clock, 7 cm from nipple position measuring 1.3 x 1.2 x 1.2 cm. They have benign features and may represent fibroadenomas however because they are increasing in size biopsy is warranted in order to completely exclude a malignancy. There is a solid hypoechoic smoothly marginated mass in the left breast at the 4 o'clock, 7 cm from the nipple position measuring 8 x 7 x 6 mm. This mass has smooth margins. It does not produce any posterior shadowing. It appears to represent a probable fibroadenoma. US/Breast Limited Unilateral IMPRESSION: The 2 solid masses in the left breast at the 3 o'clock and 2 o'clock positions are increasing in size according to the patient. Biopsy is therefore warranted in order to completely exclude a malignancy. BI-RADS 4: SUSPICIOUS RECOMMENDATION: Biopsy Recommended Reading Location: [id number]
== END | disposition home or self-care (01) ==
LOC: OPBI 13:58
PROVIDERS: PCP Internal Medicine; Referring Provider Obstetrics & Gynecology; Visit Provider Obstetrics & Gynecology
DX: N63.10 Unspecified lump in the right breast, unspecified quadrant (principal); N63.20 Unspecified lump in the left breast, unspecified quadrant
CPT/HCPCS: 76642; 77062; 77066; G0279

== ENCOUNTER → 2025-09-20 | Outpatient (CLI) | payer OTHER, SELFPAY ==
[2025-09-20 11:01] LABS: CREATININE FINGERSTICK < 1.0 mg/dL (0.55-1.02); EGFR FINGERSTICK > 60.0000 mL/min (>60)
== END | disposition home or self-care (01) ==
PROVIDERS: PCP Internal Medicine; Referring Provider Obstetrics & Gynecology; Visit Provider Obstetrics & Gynecology
DX: N63.10 Unspecified lump in the right breast, unspecified quadrant (principal); N63.20 Unspecified lump in the left breast, unspecified quadrant
CPT/HCPCS: 77049; A9575; A4216; C8908